=== PATIENT | female | born 1960 | race Caucasian/White ===

== ENCOUNTER 2019-09-25 05:19 | Inpatient (IN) ==
--- NOTE | 2019-09-11 11:29 | PAT Medication Instructions ---
Medication Instructions Date of Service September 11, 2019 Home Medications albuterol sulfate [Ventolin HFA] 2 puff INHALATION QID PRN ascorbic acid (vitamin C) [Vitamin C] 1 g PO DAILY cholecalciferol (vitamin D3) [Vitamin D3] 5,000 unit PO DAILY cyanocobalamin (vitamin B-12) [Vitamin B-12] 1,000 mcg PO DAILY fexofenadine-pseudoephedrine [Darline-D 12 Hour] 1 tab PO QAM levothyroxine 100 mcg PO QAM lorazepam [Ativan] 1 mg PO HS magnesium 250 mg PO HS meloxicam 15 mg PO QAM multivitamin 1 tab PO HS omega 9-moy-dnu-fish oil [Fish Oil] 1 cap PO DAILY rizatriptan 10 mg PO UD PRN ASK your surgeon for instructions meloxicam 15 mg PO QAM STOP taking 2 weeks before surgery (or as soon as possible if surgery is within 2 weeks) omega 6-qja-ycu-fish oil [Fish Oil] 1 cap PO DAILY DO NOT take the morning of surgery ascorbic acid (vitamin C) [Vitamin C] 1 g PO DAILY cholecalciferol (vitamin D3) [Vitamin D3] 5,000 unit PO DAILY cyanocobalamin (vitamin B-12) [Vitamin B-12] 1,000 mcg PO DAILY fexofenadine-pseudoephedrine [Darline-D 12 Hour] 1 tab PO QAM Take morning of surgery With a small sip of water, OTHERWISE NOTHING TO EAT OR DRINK AFTER MIDNIGHT: albuterol sulfate [Ventolin HFA] 2 puff INHALATION QID PRN (use if needed; please bring with you to hospital day of surgery if possible) levothyroxine 100 mcg PO QAM rizatriptan 10 mg PO UD PRN (if needed) Take evening before surgery albuterol sulfate [Ventolin HFA] 2 puff INHALATION QID PRN (if needed) lorazepam [Ativan] 1 mg PO HS magnesium 250 mg PO HS multivitamin 1 tab PO HS rizatriptan 10 mg PO UD PRN (if needed) Other Notes If you have any questions please call us at [phone] or [phone] or [phone] or [phone]
--- NOTE | 2019-09-11 11:51 | Anesthesiology Consultation ---
Date of Service September 11, 2019 Assessment & Plan (1) Encounter for pre-operative examination: COVID status: no hx of testing. Travel assessment: resides in [place]/no recent travel as of assessment on 09/10 PAT visit. Chart Review Chart Review: Acceptable Risk for Surgery (pending surgeon-ordered PCP clearance scheduled 09/18 (Dr. Hernandez)) and Patient seen in Pre Admission Testing Teaching & Discussion Pre-Anesthesia Teaching/Discussion Notes: Instructed NPO after midnight before surgery,except medications with 15 cc of water. Medication instructions provided according to the [facility] guidelines. History Surgery Operation Date: 09/25/19 11:35 Proposed Procedures p Left Anterior Total Hip Arthroplasty - Farhad Carmona, Height/Weight Height: 5 ft 10 in Weight: 74.5 kg Allergies Allergy/AdvReac Type Severity Reaction Status Date / Time Sulfa (Sulfonamide Allergy Intermediate Hives Verified 07/20/19 12:03 Antibiotics) broccoli Allergy Unknown Unknown Verified 07/20/19 12:03 [place] And Derivatives Allergy Unknown Unknown Verified 07/20/19 12:03 shellfish derived AdvReac Severe "Heavy Verified 09/11/19 14:39 feeling"/improved with "laying down" milk AdvReac Mild GI upset Verified 09/11/19 14:39 richards Allergy Intermediate Hives Uncoded 07/20/19 12:03 Medications Home Medications Medication Instructions Recorded Confirmed Last Taken albuterol sulfate [Ventolin HFA] 2 puff INHALATION QID PRN 07/20/19 09/07/19 Unknown ascorbic acid (vitamin C) [Vitamin 1 g PO DAILY 07/20/19 09/07/19 Unknown C] cholecalciferol (vitamin D3) 5,000 unit PO DAILY 07/20/19 09/07/19 Unknown [Vitamin D3] cyanocobalamin (vitamin B-12) 1,000 mcg PO DAILY 07/20/19 09/07/19 Unknown [Vitamin B-12] fexofenadine-pseudoephedrine 1 tab PO QAM 07/20/19 09/07/19 Unknown [Darline-D 12 Hour] levothyroxine 100 mcg PO QAM 07/20/19 09/07/19 Unknown lorazepam [Ativan] 1 mg PO HS 07/20/19 09/07/19 Unknown magnesium 250 mg PO HS 07/20/19 09/07/19 Unknown meloxicam 15 mg PO QAM 07/20/19 09/07/19 Unknown multivitamin 1 tab PO HS 07/20/19 09/07/19 Unknown omega 8-dxm-awe-fish oil [Fish Oil] 1 cap PO DAILY 07/20/19 09/07/19 Unknown rizatriptan 10 mg PO UD PRN 07/20/19 09/07/19 Unknown Past Medical History Medical History Asthma stable History of anemia no known hx of blood transfusions History of basal cell carcinoma s/p excision Hypothyroidism Migraine Osteoarthritis Scoliosis Exercise / Class Metabolic Activity II 4-5 Yardwork/Stairs/Walk up hill Past Family History Family History Other No family history of adverse response to anesthesia Past Surgical History Surgical History History of bilateral tubal ligation History of endometrial ablation History of removal of cyst off jaw History of wisdom tooth extraction Status post excision of fibroadenoma of breast right Past Anesthesia History No Hx of Anesthesia Complications and No Family Hx of Anesthesia Complications History of PONV No Hx of PONV and Hx of Motion Sickness Social History Smoking Status: Never smoker Do You Dip or Chew Tobacco: No Hx Alcohol Use: No Hx Substance Use: No substance use type: does not use Review of Systems Patient denies chest pain, shortness of breath, dyspnea on exertion, cough, wheezing, palpitations. Physical Exam PHYSICAL Full neck and c-spine range of motion. Full TMJ range of motion. TMD 3 finger breaths Mallampati Score 2 Dentition: missing molar Lungs: clear throughout to auscultation Cardiac: regular rate and rhythm, no murmurs noted Spine: normal Carotid arteries: negative bruit Extremities: no edema Testing Laboratory Results 09/11/19 12:10 09/11/19 12:10 PT 10.9 Seconds (9.0-12.0) 09/11/19 12:10 INR 1.0 (0.9-1.1) 09/11/19 12:10 APTT 33.0 Seconds (21.0-31.0) H 09/11/19 12:10 Urine Color Yellow 09/11/19 Unknown Urine Appearance Clear (Clear) 09/11/19 Unknown Urine pH 7.0 (4.5-7.5) 09/11/19 Unknown Ur Specific [place] 1.009 (1.000-1.030) 09/11/19 Unknown Urine Protein Negative (Negative) 09/11/19 Unknown Urine Glucose (UA) Negative (Negative) 09/11/19 Unknown Urine Ketones Negative (Negative) 09/11/19 Unknown Urine Nitrite Negative (Negative) 09/11/19 Unknown Ur Leukocyte Esterase Negative (Negative) 09/11/19 Unknown Blood Type A Positive 09/11/19 12:10 Antibody Screen NEGATIVE 09/11/19 12:10 Electrocardiogram Date: 09/11/19 NSR at 76bpm. unconfirmed report* Chest X-Ray Date: 09/11/19 Cardiomediastinal silhouette normal. Lungs are hyperinflated. No focal opacity. No pleural effusion or pneumothorax. Scoliotic curvature of the thoracolumbar spine. Upper abdomen normal. IMPRESSION: Hyperinflation may suggest emphysema or exuberant inspiratory effort. No current evidence of acute cardiopulmonary disease.
[2019-09-11 12:40] LABS: Basophils # (auto) 0.02 K/uL (0-0.2); Basophils % (auto) 0.4 %; Eosinophils # (auto) 0.11 K/uL (0-0.5); Eosinophils % (auto) 2.2 %; Hematocrit (blood only) 40.8 % (37-47); Hemoglobin 13.6 g/dL (12.0-16.0); Immature Granulocytes # (auto) 0.01 K/uL (0.00-0.02); Immature Granulocytes % (auto) 0.2 %; Lymphocytes # (auto) 2.02 K/uL (1.2-3.4); Lymphocytes % (auto) 41.2 %; Mean Corpuscular Hemoglobin 31.1 pg (25-34); Mean Corpuscular Hgb Conc 33.3 g/dL (32-36); Mean Corpuscular Volume 93.4 fL (80-100); Mean Platelet Volume 10.6 fL (7.4-10.4); Monocytes # (auto) 0.37 K/uL (0.11-0.59); Monocytes % (auto) 7.6 %; Neutrophils # (auto) 2.37 K/uL (1.4-6.5); Neutrophils % (auto) 48.4 %; Platelet Count 204 K/uL (130-400); RDW Coefficient of Variation 13.4 % (11.5-14.5); RDW Standard Deviation 46.3 fL (36.4-46.3); Red Blood Count 4.37 M/uL (4.2-5.4)
[2019-09-11 12:43] LABS: Appearance Urine Clear (Clear); Bilirubin Urine Negative (Negative); Blood Urine Negative (Negative); Color Urine Yellow; Glucose Urine UA Negative (Negative); Ketones Urine Negative (Negative); Leukocyte Esterase Urine Negative (Negative); Nitrite Urine Negative (Negative); Protein Urine Negative (Negative); Specific Gravity Urine 1.009 (1.000-1.030); Urobilinogen Urine Negative (Negative)
--- NOTE | 2019-09-11 12:46 | XRay Report ---
XR chest Pre-admission PA/Lat CLINICAL HISTORY: 59 years-old Female presenting with preoperative assessment. TECHNIQUE: PA and lateral views of the chest were obtained. COMPARISON: None. FINDINGS: Cardiomediastinal silhouette normal. Lungs are hyperinflated. No focal opacity. No pleural effusion o r pneumothorax. Scoliotic curvature of the thoracolumbar spine. Upper abdomen normal. IMPRESSION: 1. Hyperinflation may suggest emphysema or exuberant inspiratory effort. No current evidence of acut e cardiopulmonary disease. ACT 112: Negative or not required by law. Electronically signed by: Sharif Dobson M.D. 09/11/2019 12:45 PM
[2019-09-11 12:52] LABS: BUN Creatinine Ratio 15.2 (10-20); Calcium 8.8 mg/dl (8.5-10.1); Creatinine Clr Calc Pharmacy 99.5 ml/min; Est GFR (African American) 111.8; Est GFR (Non-African American) 96.5; Potassium 3.8 mmol/L (3.5-5.1)
[2019-09-11 12:53] LABS: Partial Thromboplastin Ratio 1.2; Prothrombin Time 10.9 Seconds (9.0-12.0)
--- NOTE | 2019-09-12 05:43 | Electrocardiogram Report ---
Test Reason : Blood Pressure : / mmHG Vent. Rate : 076 BPM Atrial Rate : 076 BPM P-R Int : 162 ms QRS Dur : 082 ms QT Int : 396 ms P-R-T Axes : 079 057 054 degrees QTc Int : 445 ms Normal sinus rhythm Normal ECG No previous ECGs available Confirmed by Blanie Mathews ([id number]) on 09/12/2019 5:43:24 AM Referred By: Farhad Carmona Confirmed By:Blaine Mathews
--- NOTE | 2019-09-23 18:00 | History & Physical Report ---
Date of Service September 25, 2019 Assessment & Plan (1) Degenerative joint disease of left hip: I have indicated the patient for left anterior total hip replacement. The risks, benefits and complications of surgery were explained to the patient which include but not limited to infection, acute blood loss, DVT/PE, injury to nerves, vessels, bone, soft tissue, arthrofibrosis, chronic pain, failure of the prosthesis, hip dislocation, leg length discrepancy, need for additional surgery, cardiac and pulmonary events and . The patient wished to proceed with surgery and informed consent was obtained at this time. We will plan for ASA BID post-operatively for DVT prophylaxis. Upon discharge the patient will be discharged home with home health services. Appropriate clearances by PCP were obtained. Remote history for MRSA, plan for vancomycin kamila-operative abx. History of Present Illness Chief Complaint: Left hip AVN/DJD Primary Care Provider: Danilo Heranndez MD The patient is a 59 year old female who presents with complaints of severe left hip pain, AVN/DJD. The patient has failed outpatient conservative treatments to this point which included NSAIDS, physical therapy and a home exercise, walking program. The patient's pain and limited function have progressed to the point where they severely hinder their activities of daily living and they no longer tolerate exercise programs. They are requesting to proceed with total hip replacement surgery. Allergies Allergy/AdvReac Type Severity Reaction Status Date / Time Sulfa (Sulfonamide Allergy Intermediate Hives Verified 09/25/19 06:10 Antibiotics) broccoli Allergy Unknown Unknown Verified 09/25/19 06:10 [place] And Derivatives Allergy Unknown Unknown Verified 09/25/19 06:10 shellfish derived AdvReac Severe "Heavy Verified 09/25/19 06:10 feeling"/improved with "laying down" milk AdvReac Mild GI upset Verified 09/25/19 06:10 richards Allergy Intermediate Hives Uncoded 09/25/19 06:10 Home Medications Home Medications Medication Instructions Recorded Confirmed Type albuterol sulfate [Ventolin HFA] 2 puff INHALATION QID PRN 07/20/19 09/25/19 History ascorbic acid (vitamin C) [Vitamin 1 g PO DAILY 07/20/19 09/25/19 History C] cholecalciferol (vitamin D3) 5,000 unit PO DAILY 07/20/19 09/25/19 History [Vitamin D3] cyanocobalamin (vitamin B-12) 1,000 mcg PO DAILY 07/20/19 09/25/19 History [Vitamin B-12] fexofenadine-pseudoephedrine 1 tab PO QAM 07/20/19 09/25/19 History [Darline-D 12 Hour] levothyroxine 100 mcg PO QAM 07/20/19 09/25/19 History lorazepam [Ativan] 1 mg PO HS 07/20/19 09/25/19 History magnesium 250 mg PO HS 07/20/19 09/25/19 History meloxicam 15 mg PO QAM 07/20/19 09/25/19 History multivitamin 1 tab PO HS 07/20/19 09/25/19 History omega 4-whe-zem-fish oil [Fish Oil] 1 cap PO DAILY 07/20/19 09/25/19 History rizatriptan 10 mg PO UD PRN 07/20/19 09/25/19 History Past Med/Surg History Medical History Asthma stable History of anemia no known hx of blood transfusions History of basal cell carcinoma s/p excision Hypothyroidism Migraine Osteoarthritis Scoliosis Surgical History History of bilateral tubal ligation History of endometrial ablation History of removal of cyst off jaw History of wisdom tooth extraction Status post excision of fibroadenoma of breast right Family History Other No family history of adverse response to anesthesia Social History Preferred Language: Yi Communication Ability: Effective Optical 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 Helper Required: No Beliefs That Will Affect Care: None Current Living Situation: Spouse Other Information That Helps Us Care for You: No Feels Safe at Home: Yes Safety Concerns: Feels Safe At This Time Smoking Status: Never smoker Do You Dip or Chew Tobacco: No ; Second Hand Exposure: Yes (father smoked) ; Tobacco Cessation Education Requested by Patient: No Hx Alcohol Use: No Hx Substance Use: No Review of Systems Review of Systems: All systems reviewed & are unremarkable except as noted in HPI & below Constitutional: as per Subjective / HPI Physical Exam Physical Exam: LLE NVSI +EHL/FHL/TA/GS SILT grossly, +2 DP pulse, compartments soft NT, limited painful ROM of the hip, antalgic gait. Constitutional: WD/WN, vitals as above Eyes: PERRL, conjunctivae normal, anicteric sclerae ENMT: external ear and nose normal, oropharynx normal Neck: trachea midline, no thyromegaly Respiratory: normal respiratory effort, lungs clear to auscultation Cardiovascular: RRR, no murmur, no edema Gastrointestinal (Abdomen): normal bowel sounds, soft, nontender, no hepatosplenomegaly Musculoskeletal: no cyanosis or clubbing, extremities motor strength 5/5 Skin: no rashes, warm and dry Neurologic: patellar DTR's 2+ bilat, sensation intact Psychiatric: A+Ox3, euthymic affect Lymphatic: no cervical or axillary lymphadenopathy Results & Data Results & Data ([facility]) Diagnostic Findings Multiple views of the hip demonstrates severe DJD with AVN involving the femoral head with complete loss of the joint space. +osteophytes, +sclerosis, +subchondral cysts.
[2019-09-25] MEDS ORDERED: BUPIVACAINE 0.5 % 5 MG/1 ML PF 10ML VIAL ONE (05:58)
[2019-09-25] MEDS ORDERED: CeleBREX 200 MG CAP PO SCH (06:00)
[2019-09-25] MEDS ORDERED: FAMOTIDINE 20 MG TAB PO SCH (06:00)
[2019-09-25] MEDS ORDERED: TRANEXAMIC ACID 1,000 MG **IV Pre-op IV SCH (06:00)
[2019-09-25] MEDS ORDERED: dexAMETHasone 4 MG TAB PO SCH (06:00)
[2019-09-25] MEDS ORDERED: TRANEXAMIC ACID 1,000 MG **IV Intra-op IV SCH (06:00)
[2019-09-25] MEDS ORDERED: GABAPENTIN 300 MG CAP PO SCH (06:00)
[2019-09-25] MEDS ORDERED: ROPIVACAINE 0.5% HCL/PF 150 MG, BUPIVACAINE 0.5% MPF 30 ML, EPINEPHrine 30MG/30ML (OR U... INFIL SCH (06:00)
[2019-09-25] MEDS ORDERED: METOCLOPRAMIDE HCL 10 MG TABLET PO SCH (06:00)
[2019-09-25] MEDS ORDERED: ACETAMINOPHEN 500 MG TAB PO SCH ×2 (06:00→14:00)
[2019-09-25] MEDS ORDERED: LR 500ML BOLUS, THEN 15ML/HR IV SCH (06:00)
[2019-09-25] MEDS ORDERED: VANCOMYCIN HCL 1,000 MG/270 ML BAG IV SCH (06:00)
[2019-09-25] MEDS ORDERED: MIDAZOLAM HCL 1 MG/ML 2ML VIAL ONE ×2 (06:38→06:39)
[2019-09-25] MEDS ORDERED: fentaNYL citrate 100 MCG/2 ML VIAL ONE (06:39)
--- NOTE | 2019-09-25 06:47 | History & Physical Bridge Note ---
Date of Service September 25, 2019 History & Physical Bridge Note I have examined the patient, reviewed the History & Physical and in the interval since the performance of the History & Physical I have noted the following changes of clinical significance: no changes noted
[2019-09-25] MEDS ORDERED: ORTHO JOINT ANESTHETIC ONE (06:54)
[2019-09-25] MEDS ORDERED: BACITRACIN INJ 50,000 UNIT VIAL ONE (06:54)
[2019-09-25] MEDS ORDERED: ePHEDrine sulfate 50 MG/ML SYR ONE (07:50)
[2019-09-25] MEDS ORDERED: PROPOFOL IV EMULSION 10 MG/ML 20 ML VIAL IV ONE ×2 (07:50→10:28)
[2019-09-25] MEDS ORDERED: LIDOCAINE HCL 2% 2 ML VIAL/AMP(20MG/ML) INFIL ONE (07:50)
[2019-09-25] MEDS ORDERED: PHENYLEPHRINE HCL 10 MG/ML VIAL ONE (08:55)
--- NOTE | 2019-09-25 08:58 | Post Operative Brief Note ---
Immediate Post Op Note v1 Date of Surgery September 25, 2019 Pre & Post Diagnosis Operation Date: 09/25/19 07:00 Pre-Op Diagnosis: Degenerative joint disease, AVN of left hip Post-Op Diagnosis: Degenerative joint disease, AVN of left hip I identified the patient and participated in the time-out.: Yes Procedure Operation Date: 09/25/19 07:00 Actual Procedures p Left Anterior Total Hip Arthroplasty(Left) - Farhad Carmona DO Surgeon Farhad Carmona DO Seam Stay Stitcher Clif Payan Estimated Blood Loss 75 Findings Consistent with Post-Op Diagnosis Fluids 1200 cc LR Specimens femoral head Anesthesia Type Spinal MAC Complications none Disposition Disposition: Recovery Room Overlapping Procedure I was present for: the critical portions of procedure. I was immediately available: during the entire case. Back up surgeon: was not required during procedure.
--- NOTE | 2019-09-25 09:00 | Operative Report ---
Post Operative Report Pre & Post Diagnosis Operation Date: 09/25/19 07:00 Pre-Op Diagnosis: Degenerative joint disease, AVN of left hip Post-Op Diagnosis: Degenerative joint disease, AVN of left hip I identified the patient and participated in the time-out.: Yes Procedure Operation Date: 09/25/19 07:00 Actual Procedures p Left Anterior Total Hip Arthroplasty(Left) - Farhad Carmona DO Surgeon Farhad Carmona DO Adjunct Lecturer Clif Payan Estimated Blood Loss 75 Findings Consistent with Post-Op Diagnosis Fluids 1200 cc LR Specimens femoral head Anesthesia Type Spinal MAC Complications none Disposition Disposition: Recovery Room Indications The patient is a 59-year-old female who presents with severe progressive left hip AVN/DJD who has failed outpatient conservative treatments. I indicated the patient for a anterior total hip replacement and the risks and benefits were explained in detail which include but not limited to infection, bleeding, blood clot, damage to surrounding bone, nerves, vessels, soft tissue, hip dislocation, failure of the prosthesis, leg length discrepancy, need for additional surgery and . The patient agreed to proceed with replacement of the hip and informed consent was obtained. Appropriate clearances were obtained. Description of Procedure COMPONENTS USED: [employer] hip system: Acetabulum size 50, femur size 7 standard offset, femoral head 32-3, liner 3250, acetabular screw 25 mm x 1. DESCRIPTION OF PROCEDURE: Following satisfactory spinal anesthesia, the patient was placed supine on the OR table. The right leg was placed in the well leg chaudhari and the left leg in the traction device. The left leg was prepared with ChloraPrep and draped sterilely. A surgical timeout was performed, patient identified and site cady verified. Appropriate antibiotics were given. A standard anterior approach in the interval between the sartorius and tensor mus cles was performed. Dissection was carried down through subcutaneous tissues. Electrocautery was utilized for hemostasis. Circumflex femoral vessels were identified, tied and ligated. The anterior capsular fat pad was removed and the capsulotomy was performed revealing the arthritic femoral neck and head. A femoral neck cut was made with reciprocating saw and the bone fragments removed. The acetabular self-retraining retractor was placed. Acetabular reaming was completed under fluoroscopic guidance, a 50 shell was impacted into an anatomic position and secured with a dome screw. Local anesthetic was placed and following irrigation, the polyethylene liner was placed. The femur was placed into position of external rotation, extension and adduction. Femoral canal was prepared up to the size 7 standard offset. Trial reduction with a -3.5 neck length head showed good soft tissue tension, leg lengths restored, and good fit and fill of the proximal canal using fluoroscopic landmarks. The hip was dislocated. The trial component was removed. The final implant was placed. The hip was irrigated with sterile saline solution and reduced. A Betadine soak was performed. After 3 minutes, the hip was once more irrigated with copious sterile saline solution with bacitracin. Stephanie-incisional soft tissue was injected utilizing [place] [employer] which includes a combination of Ropivicaine 0.5% 150mg, Bupivicaine 0.5%/Epinephrine 1:200,000 30ml, Toradol 30mg, Dexamethasone 4mg, Ketamine 10mg, Clonidine 100mcg and NSS 30ml solution. The capsule was then closed with 1-0 Vicryl interrupted figure of eight sutures. The fascia was closed with a running suture of #1 Vicryl, the subcutaneous tissues with 2-0 Vicryl and the skin with a running subcuticular stitch of 3-0 V-Loc. Dermabond prineo and a dry dressing were applied. The patient tolerated the procedure well and was transported to PACU in stable condition. Due to the complex nature of the procedure, the entire surgery was performed with the operational assistance of Clif payan PA-C. The corporate administrative assistant, under direct supervision, was involved in the actual performance of all aspects of the surgical procedure including patient positioning, hemostasis, tissue retraction, instrument management and wound closure. I attest to the content of the Intraoperative Record and any orders documented therein. Any exceptions are noted below.
--- NOTE | 2019-09-25 09:03 | Fluoroscopy Report ---
FL hip LT 1V CLINICAL HISTORY: LEFT ANTERIOR HIP COMPARISON STUDY: None FLUOROSCOPY TIME: 49 seconds NUMBER OF FLUOROSCOPIC IMAGES: 2 FINDINGS: Fluoroscopic assistance for a total left hip arthroplasty IMPRESSION: Fluoroscopic assistance for a total left hip arthroplasty. ACT 112: Negative or not required by law. The above report was generated using voice recognition software. It may contain grammatical, syntax or spelling errors. Electronically signed by: Darío Calderón M.D. 09/25/2019 9:01 AM
[2019-09-25] MEDS ORDERED: RIZATRIPTAN BENZOATE 10 MG TAB PO PRN (09:13)
[2019-09-25] MEDS ORDERED: ATROPINE SULFATE 0.1 MG/ML 10ML SYR IV PRN (09:50)
[2019-09-25] MEDS ORDERED: ONDANSETRON INJ 2 MG/ML 2 ML VIAL IV PRN ×2 (09:50→10:42)
[2019-09-25] MEDS ORDERED: ePHEDrine sulfate 50 MG/ML AMP IV PRN (09:50)
[2019-09-25] MEDS ORDERED: fentaNYL citrate 100 MCG/2 ML VIAL IV PRN (09:50)
--- NOTE | 2019-09-25 09:51 | Anesthesiology Progress Note ---
Date of Service September 25, 2019 Anesthesia Post Procedure Vital Signs Vital Signs: Temp Pulse Pulse Resp BP Pulse Ox 09/25/19 09:50 97.5 F L 85 16 117/76 99 09/25/19 09:40 97.5 F L 79 16 117/80 99 09/25/19 09:30 88 16 109/70 99 09/25/19 09:23 97.3 F L 82 16 102/70 95 09/25/19 06:17 97.9 F 86 16 142/94 H 99 Pain Intensity Bilateral Hip: Pain Intensity: 3 Transfer of Care Handoff Completed per policy Notes Mental Status: alert / awake / arousable and participated in evaluation Patient Amnestic to Procedure: Yes Nausea / Vomiting: adequately controlled Pain: adequately controlled Airway Patency, RR, SpO2: stable & adequate BP & HR: stable & adequate Hydration State: stable & adequate Neuraxial Anesthesia: was administered and sensory block is resolving Anesthetic Complications: no major complications apparent and Pt Satisfied with anesthetic care
--- NOTE | 2019-09-25 09:53 | XRay Report ---
XR hip 1V LT w pelvis HISTORY: 59 years-old Female IN PACU - A/P PELVIS and LATERAL HIP left hip total joint arthroplasty COMPARISON: Fluoroscopic images of the left hip 09/25/2019 TECHNIQUE: AP view of the pelvis with crosstable lateral view of the left hip FINDINGS: Left hip total joint arthroplasty demonstrates satisfactory alignment without acute fracture. Expecte d postsurgical soft tissue swelling and deep tissue air.. Severe right hip osteoarthritis. IMPRESSION: Left hip total joint arthroplasty with expected postoperative findings. ACT 112: Negative or not required by law. The above report was generated using voice recognition software. It may contain grammatical, syntax o r spelling errors. Electronically signed by: Ezequiel Dominique M.D. 09/25/2019 9:51 AM
[2019-09-25] MEDS ORDERED: MAGNESIUM HYDROXIDE SUSP 30 ML UDC PO PRN (10:42)
[2019-09-25] MEDS ORDERED: METOCLOPRAMIDE HCL INJ 5 MG/ML 2 ML VIAL IV PRN (10:42)
[2019-09-25] MEDS ORDERED: SODIUM CHLORIDE 0.9% 1000ML 1,000 ML IV SCH (10:42)
[2019-09-25] MEDS ORDERED: NALOXONE HCL 0.4 MG/1 ML VIAL/CARP IV PRN (10:42)
[2019-09-25] MEDS ORDERED: bisacodyL 10 MG SUPP PR PRN (10:42)
[2019-09-25] MEDS ORDERED: VANCOMYCIN CONSULT ACTIVE PRN (10:42)
[2019-09-25] MEDS ORDERED: LORazepam 1 MG TAB PO PRN (10:58)
[2019-09-25] MEDS ORDERED: MELATONIN 3 MG TAB PO PRN (10:58)
[2019-09-25] MEDS ORDERED: ALBUTEROL HFA 8 GM INHALER INH PRN (11:00)
[2019-09-25] MEDS ORDERED: VANCOMYCIN HCL 1,000 MG in SODIUM CHLORIDE 0.9% 250 ML IV SCH (12:00)
[2019-09-25] MEDS: KETOROLAC TROMETHAMINE 15 MG/ML VIAL IV SCH ×3 (12:31→23:24)
[2019-09-25] MEDS: OXYCODONE HCL IR 5 MG TAB (IMMEDIATE RELEASE) PO PRN (19:40)
[2019-09-25] MEDS: SENNA 8.6 MG TAB PO SCH (19:45)
[2019-09-25] MEDS: DOCUSATE SODIUM 100 MG CAP PO SCH (19:45)
--- NOTE | 2019-09-25 19:58 | Orthopedic Progress Note ---
Date of Service September 25, 2019 Assessment & Plan (1) Degenerative joint disease of left hip: s/p Left anterior SYDNEY -Vanco x24 -DVT ppx: SCDs, TEDS, ASA BID -WBAT LLE -PT/OT -PO XR demonstrates well aligned well fixed total hip prothesis without fracture/dislocation -am labs -DC planning Admission and Anticipated Discharge Date Admission Date: September 25, 2019 Subjective Post Operative Progress Note Patient seen sitting up in bed, comfortable, denies complaints, pain well controlled, no acute issues. Review of Systems Review of Systems: All systems reviewed & are unremarkable except as noted in HPI & below Constitutional: as per Subjective / HPI Physical Exam Physical Exam: LLE NVSI +EHL/FHL/TA/GS SILT grossly, +2 DP pulse, compartments soft NT, dressing cdi. Constitutional: WD/WN, vitals as above Results & Data ([facility]) Vital Signs (Past 12 Hours) Vital Signs Temp Pulse Pulse Resp BP Pulse Ox 09/25/19 16:25 37.0 C 86 18 125/81 97 09/25/19 13:49 36.5 C 92 H 18 135/89 98 09/25/19 12:08 80 16 126/82 98 09/25/19 11:13 36.4 C L 83 16 120/84 98 09/25/19 10:42 36.3 C L 72 16 119/83 100 09/25/19 10:05 36.4 C L 80 16 117/78 99 09/25/19 09:50 36.4 C L 85 16 117/76 99 09/25/19 09:40 36.4 C L 79 16 117/80 99 09/25/19 09:30 88 16 109/70 99 09/25/19 09:23 36.3 C L 82 16 102/70 95
[2019-09-26] MEDS: OXYCODONE HCL IR 5 MG TAB (IMMEDIATE RELEASE) PO PRN (04:02)
[2019-09-26] MEDS: LEVOTHYROXINE SODIUM 100 MCG TABLET PO SCH (05:54)
[2019-09-26] MEDS: KETOROLAC TROMETHAMINE 15 MG/ML VIAL IV SCH (05:54)
[2019-09-26 06:09] LABS: Hematocrit (blood only) 29.8 % (37-47); Immature Granulocytes # (auto) 0.02 K/uL (0.00-0.02); Immature Granulocytes % (auto) 0.2 %; Lymphocytes # (auto) 1.37 K/uL (1.2-3.4); Mean Corpuscular Hemoglobin 31.1 pg (25-34); Mean Corpuscular Hgb Conc 33.6 g/dL (32-36); Mean Corpuscular Volume 92.5 fL (80-100); Mean Platelet Volume 10.3 fL (7.4-10.4); Monocytes # (auto) 0.82 K/uL (0.11-0.59); Monocytes % (auto) 7.2 %; Neutrophils # (auto) 9.17 K/uL (1.4-6.5); Neutrophils % (auto) 80.6 %; Platelet Count 194 K/uL (130-400); RDW Coefficient of Variation 13.3 % (11.5-14.5); Red Blood Count 3.22 M/uL (4.2-5.4); White Blood Count 11.38 K/uL (4.8-10.8)
[2019-09-26 06:44] LABS: BUN Creatinine Ratio 19.9 (10-20); Calcium 8.3 mg/dl (8.5-10.1); Est GFR (African American) 111.3; Potassium 3.8 mmol/L (3.5-5.1)
--- NOTE | 2019-09-26 07:54 | Orthopedic Progress Note ---
Date of Service September 26, 2019 Assessment & Plan (1) Degenerative joint disease of left hip: s/p Left anterior SYDNEY POD#1 -Vanco x24 -DVT ppx: SCDs, TEDS, ASA BID -WBAT LLE -PT/OT -PO XR demonstrates well aligned well fixed total hip prothesis without fracture/dislocation -am labs - hgb 10.0 -DC planning- home with HH Admission and Anticipated Discharge Date Admission Date: September 25, 2019 Subjective Post Operative Progress Note Patient seen sitting up in bed, comfortable, denies complaints, pain well controlled, no acute issues. Denies F/C/N/V/SOB/CP. Review of Systems Review of Systems: All systems reviewed & are unremarkable except as noted in HPI & below Constitutional: as per Subjective / HPI Physical Exam Physical Exam: LLE NVSI +EHL/FHL/TA/GS SILT grossly, +2 DP pulse, compartments soft NT, dressing CDI Constitutional: WD/WN, vitals as above Eyes: PERRL, conjunctivae normal, anicteric sclerae ENMT: external ear and nose normal, oropharynx normal Neck: trachea midline, no thyromegaly Respiratory: normal respiratory effort, lungs clear to auscultation Cardiovascular: RRR, no murmur, no edema Gastrointestinal (Abdomen): normal bowel sounds, soft, nontender, no hepatosplenomegaly Musculoskeletal: no cyanosis or clubbing, extremities motor strength 5/5 Skin: no rashes, warm and dry Neurologic: patellar DTR's 2+ bilat, sensation intact Psychiatric: A+Ox3, euthymic affect Lymphatic: no cervical or axillary lymphadenopathy Results & Data ([facility]) Vital Signs (Past 12 Hours) Vital Signs Temp Pulse Pulse Resp BP Pulse Ox 09/26/19 03:52 36.9 C 95 H 16 130/82 98 09/26/19 01:33 93 H 18 100/65 96 09/25/19 23:15 36.9 C 89 16 149/86 H 99 09/25/19 21:29 36.8 C 83 18 125/81 98 Laboratory Results 09/26/19 09/26/19 09/26/19 Range/Units 05:41 05:41 05:41 WBC 11.38 H (4.8-10.8) K/uL RBC 3.22 L (4.2-5.4) M/uL Hgb 10.0 L (12.0-16.0) g/dL Hct 29.8 L (37-47) % MCV 92.5 (80-100) fL MCH 31.1 (25-34) pg MCHC 33.6 (32-36) g/dL RDW Std Deviation 45.0 (36.4-46.3) fL RDW Coeff of Barb 13.3 (11.5-14.5) % Plt Count 194 (130-400) K/uL MPV 10.3 (7.4-10.4) fL Immature Gran % (Auto) 0.2 % Neut % (Auto) 80.6 % Lymph % (Auto) 12.0 % [place] % (Auto) 7.2 % Eos % (Auto) 0.0 % Baso % (Auto) 0.0 % Immature Gran # (Auto) 0.02 (0.00-0.02) K/uL Neut # (Auto) 9.17 H (1.4-6.5) K/uL Lymph # (Auto) 1.37 (1.2-3.4) K/uL [place] # (Auto) 0.82 H (0.11-0.59) K/uL Eos # (Auto) 0.00 (0-0.5) K/uL Baso # (Auto) 0.00 (0-0.2) K/uL Sodium 138 (136-145) mmol/L Potassium 3.8 (3.5-5.1) mmol/L Chloride 106 (98-107) mmol/L Carbon Dioxide 28 (21-32) mmol/L Anion Gap 5.0 (3-11) BUN 13 (7-18) mg/dl Creatinine 0.66 (0.6-1.2) mg/dl Est Cr Clr Drug Dosing 98.0 ml/min Est GFR ( Amer) 111.3 Est GFR (Non-Af Amer) 96.0 BUN/Creatinine Ratio 19.9 (10-20) Glucose 110 H (70-99) mg/dl Calcium 8.3 L (8.5-10.1) mg/dl Hepatitis C Ab Screen Pending
[2019-09-26] MEDS: MULTIVITAMIN TAB PO SCH (08:29)
[2019-09-26] MEDS: DOCUSATE SODIUM 100 MG CAP PO SCH ×2 (08:29→20:29)
[2019-09-26] MEDS: ASPIRIN 325 MG ECTAB PO SCH ×2 (08:29→20:29)
[2019-09-26] MEDS: SENNA 8.6 MG TAB PO SCH (20:29)
[2019-09-27] MEDS: LEVOTHYROXINE SODIUM 100 MCG TABLET PO SCH (06:35)
[2019-09-27 06:45] LABS: Basophils # (auto) 0.01 K/uL (0-0.2); Basophils % (auto) 0.1 %; Eosinophils # (auto) 0.03 K/uL (0-0.5); Eosinophils % (auto) 0.3 %; Hematocrit (blood only) 30.3 % (37-47); Hemoglobin 10.1 g/dL (12.0-16.0); Immature Granulocytes # (auto) 0.02 K/uL (0.00-0.02); Immature Granulocytes % (auto) 0.2 %; Lymphocytes # (auto) 1.43 K/uL (1.2-3.4); Lymphocytes % (auto) 15.9 %; Mean Corpuscular Hemoglobin 31.2 pg (25-34); Mean Corpuscular Hgb Conc 33.3 g/dL (32-36); Mean Corpuscular Volume 93.5 fL (80-100); Mean Platelet Volume 10.6 fL (7.4-10.4); Monocytes # (auto) 0.73 K/uL (0.11-0.59); Monocytes % (auto) 8.1 %; Neutrophils # (auto) 6.78 K/uL (1.4-6.5); Neutrophils % (auto) 75.4 %; Platelet Count 182 K/uL (130-400); RDW Coefficient of Variation 13.7 % (11.5-14.5); RDW Standard Deviation 46.9 fL (36.4-46.3); Red Blood Count 3.24 M/uL (4.2-5.4)
[2019-09-27 07:20] LABS: BUN Creatinine Ratio 15.5 (10-20); Calcium 8.2 mg/dl (8.5-10.1); Creatinine Clr Calc Pharmacy 129.4 ml/min; Est GFR (African American) 121.9; Est GFR (Non-African American) 105.2; Potassium 3.7 mmol/L (3.5-5.1)
[2019-09-27] MEDS: MULTIVITAMIN TAB PO SCH (08:38)
[2019-09-27] MEDS: ASPIRIN 325 MG ECTAB PO SCH (08:38)
[2019-09-27] MEDS: DOCUSATE SODIUM 100 MG CAP PO SCH (08:38)
--- NOTE | 2019-09-27 08:56 | Orthopedic Progress Note ---
Date of Service September 27, 2019 Assessment & Plan (1) Degenerative joint disease of left hip: s/p Left anterior SYDNEY POD#2 -DVT ppx: SCDs, TEDS, ASA BID -WBAT LLE -PT/OT -am labs - hgb 10.1 -DC planning- home with Admission and Anticipated Discharge Date Admission Date: September 25, 2019 Subjective Postop day 2 status post left anterior SYDNEY Patient currently lying in bed. States that she began having a migraine headache this morning. Nursing is in the process of getting her medication. No other complaints at this time. Hoping to go home today. Physical Exam Physical Exam: Dressing is clean, dry, and intact. Mild ecchymosis noted as well. Mild thigh swelling. Thigh is soft and nontender. Calves are soft and nontender. Neurovascular is intact. Toes are mobile. Leg lengths appear equal. Results & Data ([facility]) Vital Signs (Past 12 Hours) Vital Signs Temp Pulse Pulse Resp BP Pulse Ox 09/27/19 07:26 37.0 C 90 16 127/75 99 09/26/19 23:02 37.2 C 104 H 20 120/73 96
--- NOTE | 2019-09-27 14:07 | Orthopedic Progress Note ---
Date of Service September 27, 2019 Assessment & Plan (1) Degenerative joint disease of left hip: s/p Left anterior SYDNEY POD#2 -DVT ppx: SCDs, TEDS, ASA BID -WBAT LLE -PT/OT -am labs - hgb 10.1 -DC planning- home with POD#1 -Vanco x24 -DVT ppx: SCDs, TEDS, ASA BID -WBAT LLE -PT/OT -PO XR demonstrates well aligned well fixed total hip prothesis without fracture/dislocation -am labs - hgb 10.0 -DC planning- home with Admission and Anticipated Discharge Date Admission Date: September 25, 2019 Subjective Post Operative Progress Note Patient seen sitting up in bed, comfortable, denies complaints, pain well controlled, no acute issues. Denies F/C/N/V/SOB/CP. Review of Systems Review of Systems: All systems reviewed & are unremarkable except as noted in HPI & below Constitutional: as per Subjective / HPI Physical Exam Physical Exam: LLE NVSI +EHL/FHL/TA/GS SILT grossly, +2 DP pulse, compartments soft NT, dressing cdi. Constitutional: WD/WN, vitals as above Results & Data ([facility]) Vital Signs (Past 12 Hours) Vital Signs Temp Pulse Resp BP Pulse Ox 09/27/19 07:26 37.0 C 90 16 127/75 99 Laboratory Results 09/27/19 09/27/19 Range/Units 06:12 06:12 WBC 9.00 (4.8-10.8) K/uL RBC 3.24 L (4.2-5.4) M/uL Hgb 10.1 L (12.0-16.0) g/dL Hct 30.3 L (37-47) % MCV 93.5 (80-100) fL MCH 31.2 (25-34) pg MCHC 33.3 (32-36) g/dL RDW Std Deviation 46.9 H (36.4-46.3) fL RDW Coeff of Barb 13.7 (11.5-14.5) % Plt Count 182 (130-400) K/uL MPV 10.6 H (7.4-10.4) fL Immature Gran % (Auto) 0.2 % Neut % (Auto) 75.4 % Lymph % (Auto) 15.9 % [place] % (Auto) 8.1 % Eos % (Auto) 0.3 % Baso % (Auto) 0.1 % Immature Gran # (Auto) 0.02 (0.00-0.02) K/uL Neut # (Auto) 6.78 H (1.4-6.5) K/uL Lymph # (Auto) 1.43 (1.2-3.4) K/uL [place] # (Auto) 0.73 H (0.11-0.59) K/uL Eos # (Auto) 0.03 (0-0.5) K/uL Baso # (Auto) 0.01 (0-0.2) K/uL Sodium 142 (136-145) mmol/L Potassium 3.7 (3.5-5.1) mmol/L Chloride 110 H (98-107) mmol/L Carbon Dioxide 29 (21-32) mmol/L Anion Gap 3.0 (3-11) BUN 8 D (7-18) mg/dl Creatinine 0.50 L (0.6-1.2) mg/dl Est Cr Clr Drug Dosing 129.4 ml/min Est GFR ( Amer) 121.9 Est GFR (Non-Af Amer) 105.2 BUN/Creatinine Ratio 15.5 (10-20) Glucose 104 H (70-99) mg/dl Calcium 8.2 L (8.5-10.1) mg/dl
--- NOTE | 2019-09-27 14:08 | Discharge Summary ---
Date of Service September 27, 2019 Admission HPI Per Admitting Provider The patient is a 59 year old female who presents with complaints of severe left hip pain, AVN/DJD. The patient has failed outpatient conservative treatments to this point which included NSAIDS, physical therapy and a home exercise, walking program. The patient's pain and limited function have progressed to the point where they severely hinder their activities of daily living and they no longer tolerate exercise programs. They are requesting to proceed with total hip replacement surgery. Principal Diagnosis Left anterior total hip replacement -left hip AVN/DJD Discharge Exam LLE NVSI +EHL/FHL/TA/GS SILT grossly, +2 DP pulse, compartments soft NT, dressing cdi. Constitutional WD/WN, vitals as above Discharge Data Allergies Allergy/AdvReac Type Severity Reaction Status Date / Time Sulfa (Sulfonamide Allergy Intermediate Hives Verified 09/25/19 06:10 Antibiotics) broccoli Allergy Unknown Unknown Verified 09/25/19 06:10 [place] And Derivatives Allergy Unknown Unknown Verified 09/25/19 06:10 shellfish derived AdvReac Severe "Heavy Verified 09/25/19 06:10 feeling"/improved with "laying down" milk AdvReac Mild GI upset Verified 09/25/19 06:10 richards Allergy Intermediate Hives Uncoded 09/25/19 06:10 Consultations 09/26/19 08:00 Consult Case Management - Discharge Planning Routine Procedures Performed Operation Date: 09/25/19 07:00 Actual Procedures p Left Anterior Total Hip Arthroplasty(Left) - Farhad Carmona DO Ordered Studies 09/25/19 07:00 FL fluoroscopy <1hr Routine FL hip LT 1V Routine Hospital Course (1) Degenerative joint disease of left hip: The patient is a 59 -year-old female who presents with 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 The patient's symptoms have progressed to the point where it has been difficult to perform even normal activities of daily living. I indicated the patient for a left anterior total hip arthroplasty, the risks, benefits and complications of the procedure include but not limited to infection, bleeding, damage to bone, nerves, vessels, surrounding soft tissue, may develop blood clots, loss of function, leg length discrepancy, dislocation, failure of the components, loosening of the components, the need for additional surgery and . The patient wished to proceed with surgery at this time and informed consent was obtained. Hospital Course: On 09/25/19 the patient was taken to the operating room, adequate anesthesia administered and underwent a left anterior total hip arthroplasty. The patient tolerated the procedure well and was taken to the PACU in stable condition. Post-operatively the patient was started on a DVT ppx medication and given appropriate IV antibiotics. Consults were placed to physical therapy, occupational therapy and case management. On POD#1, the patient did well overnight and their pain was well controlled. Labs were drawn and the Hgb was 10.0. The patient progressed well with PT. Did report some feeling of light headed upon ambulating which resolved. Remained hemodynamically stable. On POD#2, the patient continued to progress well with PT. No reports of feeling light headed with activity. Labs were drawn and hgb was 10.1. Dressings were changed at this time and the incision was clean, dry and intact. The patients hospital stay was relatively uneventful and they were deemed stable by the orthopedic team and consultants to be discharged home with on 09/27/19. Discharge Instructions: Upon discharge the patient may weight bear as tolerates through their operative extremity. They were instructed to keep the incision clean and dry at all times. The patient may shower but should not submerge the incision, avoid bathing, pools and hot tubes. The patient was given a script for pain medication and should take as instructed. The patient was given a script for DVT ppx ASA 325mg BID and should take as directed. The patient was instructed to not drive or travel for long distances until cleared to do so. If the patient develops any symptoms of fevers, chills, nausea, vomiting, increased redness, swelling, pain or drainage from the surgical site, they should notify the office and/or proceed to the nearest emergency room. The patient should follow up in 10-14 days after surgery for their routine post-operative follow-up appointment and should call the office to confirm the date and time. s/p Left anterior SYDNEY POD#2 -DVT ppx: SCDs, TEDS, ASA BID -WBAT LLE -PT/OT -am labs - hgb 10.1 -DC planning- home with POD#1 -Vanco x24 -DVT ppx: SCDs, TEDS, ASA BID -WBAT LLE -PT/OT -PO XR demonstrates well aligned well fixed total hip prothesis without frac ture/dislocation -am labs - hgb 10.0 -DC planning- home with HH Total Time Total Time Spent Total Time Spent (In Minutes): 45 Discharge Plan Discharge Items Patient Disposition: Home - Home Health Services Reason For Visit: Left Hip Osteoarthritis Discharge Diagnosis: Left anterior total hip replacement -left hip avn/djd Condition on Discharge: Good Activity: Per Instructions section Lifting: Wait until after follow-up appointment Bathing: Keep incision dry Bathing Comment: No bathing, pools or hot tubs. Sexual Activity: Wait until after follow-up appointment Exercise/Sports: Wait until after follow-up appointment Driving/Machine Use: No driving Weightbearing: Full weightbearing Non-emergency contact: Surgeon Call non-emergency contact if: you have any medication questions, your symptoms worsen, your pain is not controlled, your pain is worsening, your pain is unusual for you, your pain is concerning for you, you have a fever, your temperature is above 101, your wound has increased redness, your wound has increased drainage and your wound pain has increased Follow-up/Referrals: Farhad Carmona DO [Physician] - 10/12/19 11:20 am Danilo Hernandez MD [Primary Care Provider] - Diet: Regular Addtl Attending Provider Instructions: ACTIVITY RECOMMENDATIONS: SELF CARE INSTRUCTIONS AFTER TOTAL HIP REPLACEMENT : Direct Anterior Approach Until the incision and soft tissues around your hip have healed, there is a possibility that the hip prosthesis could dislocate. A. Hip flexion ( Up & Down out of chair or steps ) may be difficult. This is normal. B. Numbness in front of the thigh is also normal for a few weeks. C. Use hand rails when walking on stairs. D. Wear low heeled shoes with non-slip soles. E. Be sure that your floors are free of things that could trip you - throw rugs, electrical cords, small objects. Avoid wet and waxed floors, especially with crutches and canes. F. Try to walk several times a day with rest periods between. G. Continue with all the exercises taught to you in the hospital. Again, make walking a part of your daily routine. SPECIAL CARE INSTRUCTIONS: VERY IMPORTANT TO READ AND REVIEW A. You may still be at risk for phlebitis and blood clots. 1. Wear surgical stockings (CHILO hose) for 2 weeks after surgery to improve circulation and reduce swelling. 2. Take Aspirin 325mg twice daily for 4 weeks or as directed by your doctor. This is your blood thinner. 3. High risk patients may be prescribed a stronger blood thinner if necessary. 4. If you are on Coumadin normally, your family doctor/home service demonstrator should monitor your blood work. Expect a phone call the day of or the day after bloodwork is drawn to adjust your dosage. B. You must take antibiotics before having dental work, bladder, bowel and other surgery. Your doctor will provide you with a permanent card to carry describing precautions. C. Call [facility] if you have a fever, redness or swelling around the incision, cloudy drainage from incision, or sudden increase in pain in your hip, not relieved by your regular pain medication. D. Please call the office at if you have any concerns or questions about your operation or recovery. * YOU MAY SHOWER, NO TUB BATHS UNTIL CLEARED BY YOUR DOCTOR. - Keep an extra close eye on the top portion of your incision. Be sure to keep clean & dry. * WEAR CHILO HOSE 20 HOURS PER DAY FOR 2 WEEKS. * YOU MAY PROGRESS FROM A WALKER, TO A CANE, TO INDEPENDENT AT YOUR OWN PACE. * MOST PATIENTS WILL HAVE HOME NURSING FOR THERAPY. IF YOU DECIDE TO DO OUTPATIENT PHYSICAL THERAPY, PLEASE SCHEDULE THIS 3 TIMES PER WEEK. * DERMABOND Prineo- This is a mesh tape dressing that is covered with glue. It should remain in place until the incision is properly healed, usually 10-14 days. This dressing is designed to naturally slough off. You may trim the excess mesh tape as it peels off. Incision may be briefly wet in a shower. Dry immediately by blotting with a clean, dry towel. Do not bath or swim until instructed by your doctor. Do not scratch, rub, or pick at the dressing. Do not apply any topical ointments or lotions until dressing is completely removed and/or instructed by your doctor. There may be a small piece of suture material at one end of your incision. Do not pull or trim this. If it is bothersome or catching on clothing, you may cover it with a band-aid. FOLLOW UP VISIT: If appointment is not already scheduled: Please call [facility] to make a follow-up appointment for 2 weeks after your surgery at . Pending Studies at Discharge: No Stand-Alone Forms: My [facility] Medications and DC Order Prescriptions: New aspirin 325 mg Tablet,Delayed Release (Dr/Ec) 325 mg PO BID Qty: 56 RF: 0 sennosides [Senokot] 8.6 mg Tablet 17.2 mg PO HS PRN (Reason: constipation) Qty: 28 RF: 0 oxycodone 5 mg Tablet 5 mg PO Q6H MDD 4 PRN (Reason: pain) Qty: 30 RF: 0 fluconazole 150 mg tablet 150 mg PO Q3D PRN (Reason: Yeast infection) Qty: 2 RF: 0 Continued multivitamin Tablet 1 tab PO HS RF: 0 ascorbic acid (vitamin C) [Vitamin C] 1,000 mg Tablet 1 g PO DAILY RF: 0 cyanocobalamin (vitamin B-12) [Vitamin B-12] 1,000 mcg Tablet 1,000 mcg PO DAILY RF: 0 levothyroxine 100 mcg Tablet 100 mcg PO QAM RF: 0 magnesium 250 mg Tablet 250 mg PO HS RF: 0 lorazepam [Ativan] 1 mg Tablet 1 mg PO HS RF: 0 fexofenadine-pseudoephedrine [Darline-D 12 Hour] 60-120 mg Tablet Extended Release 12 Hr 1 tab PO QAM RF: 0 cholecalciferol (vitamin D3) [Vitamin D3] 125 mcg (5,000 unit) Tablet 5,000 unit PO DAILY RF: 0 omega 2-iih-ypo-fish oil [Fish Oil] 1,000 mg (120 mg-180 mg) Capsule 1 cap PO DAILY RF: 0 albuterol sulfate [Ventolin HFA] 90 mcg/actuation Hfa Aerosol Inhaler 2 puff INHALATION QID PRN (Reason: Shortness Of Breath) RF: 0 rizatriptan 10 mg Tablet 10 mg PO UD PRN (Reason: Migraine Headache) RF: 0 melatonin 5 mg Tablet 5 mg PO HS PRN (Reason: Sleep) RF: 0 Discontinued meloxicam 15 mg Tablet 15 mg PO QAM RF: 0 Discharge Orders: Discharge Order (Routine); Ordered 09/27/19 Ordered By: Farhad Parekh/Other Patient Handouts: Hip Precautions, Hip Replace Total Dc Admission Data Admit Date/Time: 09/25/19 09:32 Attending Provider: Farhad Carmona Admit Provider: Farhad Carmona Primary Care Provider: Danilo Hernandez Other Providers: Maria Luisa,Home Health Other Interventions: Discharge Summary Assessment (RN) Last Done: 09/27/19 14:20 DC Date/Time DO NOT enter until pt leaves facility: 09/27/19 15:45
== END 2019-09-27 15:45 | disposition home health service (06) | DRG 470 ==
LOC: ASU 05:19 → 3E 09:32

== ENCOUNTER 2019-12-31 09:48 | Inpatient (IN) ==
--- NOTE | 2019-12-26 08:57 | PAT Medication Instructions ---
Medication Instructions Date of Service December 26, 2019 Home Medications Medication Instructions Recorded aspirin 325 mg PO BID #56 tab 09/25/19 sennosides [Senokot] 17.2 mg PO HS PRN #28 tab 09/25/19 fluconazole 150 mg PO Q3D PRN #2 tab 09/26/19 albuterol sulfate [Ventolin HFA] 2 puff INHALATION QID PRN ascorbic acid (vitamin C) [Vitamin C] 1 g PO DAILY cholecalciferol (vitamin D3) [Vitamin D3] 5,000 unit PO DAILY cyanocobalamin (vitamin B-12) [Vitamin B-12] 1,000 mcg PO DAILY fexofenadine-pseudoephedrine [Darline-D 12 Hour] 1 tab PO QAM levothyroxine 100 mcg PO QAM lorazepam [Ativan] 1 mg PO HS magnesium 250 mg PO HS multivitamin 1 tab PO HS omega 5-edo-ozv-fish oil [Fish Oil] 1 cap PO DAILY rizatriptan 10 mg PO UD PRN aspirin 325 mg PO BID melatonin 5 mg PO HS PRN sennosides [Senokot] 17.2 mg PO HS PRN fluconazole 150 mg PO Q3D PRN Continue as directed fluconazole 150 mg PO Q3D PRN (if needed) ASK your prescriber and surgeon aspirin 325 mg PO BID STOP taking 2 weeks before surgery (or as soon as possible if surgery is within 2 weeks) omega 9-ubh-rkp-fish oil [Fish Oil] 1 cap PO DAILY DO NOT take the morning of surgery ascorbic acid (vitamin C) [Vitamin C] 1 g PO DAILY cholecalciferol (vitamin D3) [Vitamin D3] 5,000 unit PO DAILY cyanocobalamin (vitamin B-12) [Vitamin B-12] 1,000 mcg PO DAILY fexofenadine-pseudoephedrine [Darline-D 12 Hour] 1 tab PO QAM Take morning of surgery With a small sip of water, OTHERWISE NOTHING TO EAT OR DRINK AFTER MIDNIGHT: albuterol sulfate [Ventolin HFA] 2 puff INHALATION QID PRN (use if needed; please bring with you to hospital day of surgery if possible) levothyroxine 100 mcg PO QAM rizatriptan 10 mg PO UD PRN (if needed) Take evening before surgery albuterol sulfate [Ventolin HFA] 2 puff INHALATION QID PRN (if needed) lorazepam [Ativan] 1 mg PO HS magnesium 250 mg PO HS multivitamin 1 tab PO HS rizatriptan 10 mg PO UD PRN (if needed) melatonin 5 mg PO HS PRN(if needed) sennosides [Senokot] 17.2 mg PO HS PRN (if needed) Other Notes If you have any questions please call us at [phone] or [phone] or [phone] or [phone]
--- NOTE | 2019-12-26 12:30 | Anesthesiology Consultation ---
Date of Service December 26, 2019 Assessment & Plan (1) Encounter for pre-operative examination: COVID Status: As of 12/25 assessment, patient denies travel to endemic area, known exposure/sick contacts, or symptoms of COVID19. Patient instructed that they and their household members must follow strict social distancing guidelines, wear a mask in public and avoid travel for 14 days prior to surgery. Preoperative COVID19 testing completed at [facility] [place] today (12/25). Patient made aware t o self-isolate as much as possible between COVID testing and surgery. S/P LEFT SYDNEY 09/25/19 -- SAB x 1 attempt without issues per record Chart Review Chart Review: Acceptable Risk for Surgery and Patient seen in Pre Admission Testing Teaching & Discussion Instructed NPO after midnight before surgery, except medications with 15 cc of water. Medication instructions provided according to the PAT guidelines. History Surgery Operation Date: 12/31/19 12:20 Proposed Procedures p Right Anterior Total Hip Arthroplasty - Farhad Carmona DO Height/Weight Height: 5 ft 10 in Weight: 74.7 kg Allergies Allergy/AdvReac Type Severity Reaction Status Date / Time Sulfa (Sulfonamide Allergy Intermediate Hives Verified 12/18/19 08:40 Antibiotics) broccoli Allergy Unknown Unknown Verified 12/18/19 08:40 Quay And Derivatives Allergy Unknown Unknown Verified 12/18/19 08:40 shellfish derived AdvReac Severe "Heavy Verified 12/18/19 08:40 feeling"/improved with "laying down" milk AdvReac Mild GI upset Verified 12/18/19 08:40 richards Allergy Intermediate Hives Uncoded 12/18/19 08:40 Medications Home Medications Medication Instructions Recorded Confirmed Last Taken albuterol sulfate [Ventolin HFA] 2 puff INHALATION QID PRN 07/20/19 12/18/19 22:00 ascorbic acid (vitamin C) [Vitamin 1 g PO DAILY 07/20/19 12/18/19 09/24/19 05:30 C] cholecalciferol (vitamin D3) 5,000 unit PO DAILY 07/20/19 12/18/19 09/24/19 13:00 [Vitamin D3] cyanocobalamin (vitamin B-12) 1,000 mcg PO DAILY 07/20/19 12/18/19 09/18/19 [Vitamin B-12] fexofenadine-pseudoephedrine 1 tab PO QAM 07/20/19 12/18/19 09/24/19 05:30 [Darline-D 12 Hour] levothyroxine 100 mcg PO QAM 07/20/19 12/18/19 09/25/19 03:30 lorazepam [Ativan] 1 mg PO HS 07/20/19 12/18/19 09/24/19 22:00 magnesium 250 mg PO HS 07/20/19 12/18/19 09/24/19 17:00 multivitamin 1 tab PO HS 07/20/19 12/18/19 09/24/19 05:30 omega 8-grs-gkk-fish oil [Fish Oil] 1 cap PO DAILY 07/20/19 12/18/19 09/11/19 rizatriptan 10 mg PO UD PRN 07/20/19 12/18/19 09/23/19 aspirin 325 mg PO BID #56 tab 09/25/19 12/18/19 Unknown melatonin 5 mg PO HS PRN 09/25/19 12/18/19 09/24/19 22:00 sennosides [Senokot] 17.2 mg PO HS PRN #28 tab 09/25/19 12/18/19 Unknown fluconazole 150 mg PO Q3D PRN #2 tab 09/26/19 12/18/19 Unknown Past Medical History Medical History Asthma stable, using albuterol almost every day currently due to seasonal allergies. History of anemia no known hx of blood transfusions History of basal cell carcinoma s/p excision Hypothyroidism Migraine Osteoarthritis Scoliosis Exercise / Class Metabolic Activity III < 4 Walking/Shop/Light housework (Denies CP or SOB with ambulation, using cane, limited currently due to hip pain and s/p SYDNEY 08/2019) Past Family History Family History Other No family history of adverse response to anesthesia Past Surgical History Surgical History History of bilateral tubal ligation History of endometrial ablation History of left hip replacement 09/25/2019 [facility] History of removal of cyst off jaw History of wisdom tooth extraction Status post excision of fibroadenoma of breast right Past Anesthesia History No Hx of Anesthesia Complications and No Family Hx of Anesthesia Complications PATIENT DOES HAVE SCOLIOSIS, BUT NO ISSUES NOTED WITH SPINAL BLOCK ON 08/2019 SYDNEY RECORD. History of PONV History of PONV (Nausea only, possibly 2/2 oxycodone) and Hx of Motion Sickness Social History Smoking Status: Never smoker Do You Dip or Chew Tobacco: No Hx Alcohol Use: No Hx Substance Use: No substance use type: does not use Review of Systems Pt denies any recent chest pain, shortness of breath, palpitations, fever, URI, or uncontrolled acid reflux. +minor cough 2/2 seasonal allergies Physical Exam Vital Signs BP: 126/89 P: 71bpm SPO2: 99% RA T: 97.4 F R: 16 ENMT Mouth: + chipped teeth (last molar on bottom on both sides broken); no dental restorations and no loose teeth Thyromental Distance: > or= 3.5 Finger Breadths Mallampati Class: I Neck normal visual inspection; neck extension not limited Respiratory normal respiratory effort Auscultation: lungs clear to auscultation bilaterally Cardiovascular Rate/Rhythm: regular rate and regular rhythm Heart Sounds: no murmur Extremities: no edema Testing Laboratory Results 12/26/19 12:43 12/26/19 12:43 PT 10.9 Seconds (9.0-12.0) 12/26/19 12:43 INR 1.0 (0.9-1.1) 12/26/19 12:43 APTT 32.5 Seconds (21.0-31.0) H 12/26/19 12:43 Hemoglobin A1c 5.4 % (4.5-5.6) 12/26/19 12:43 Urine Color Yellow 12/26/19 12:43 Urine Appearance Clear (Clear) 12/26/19 12:43 Urine pH 6.5 (4.5-7.5) 12/26/19 12:43 Ur Specific [place] 1.013 (1.000-1.030) 12/26/19 12:43 Urine Protein Negative (Negative) 12/26/19 12:43 Urine Glucose (UA) Negative (Negative) 12/26/19 12:43 Urine Ketones Negative (Negative) 12/26/19 12:43 Urine Nitrite Negative (Negative) 12/26/19 12:43 Ur Leukocyte Esterase Negative (Negative) 12/26/19 12:43 Blood Type A Positive 12/26/19 12:43 Antibody Screen NEGATIVE 12/26/19 12:43 Electrocardiogram Date: 09/11/19 Findings: + NSR @ (76bpm) Chest X-Ray Date: 09/11/19 Hyperinflation may suggest emphysema or exuberant inspiratory effort. No current evidence of acute cardiopulmonary disease.
[2019-12-26 13:32] LABS: Basophils # (auto) 0.02 K/uL (0-0.2); Basophils % (auto) 0.4 %; Eosinophils # (auto) 0.06 K/uL (0-0.5); Eosinophils % (auto) 1.1 %; Hemoglobin 13.7 g/dL (12.0-16.0); Lymphocytes # (auto) 1.75 K/uL (1.2-3.4); Lymphocytes % (auto) 32.8 %; Mean Corpuscular Hemoglobin 29.8 pg (25-34); Mean Corpuscular Hgb Conc 31.9 g/dL (32-36); Mean Corpuscular Volume 93.5 fL (80-100); Mean Platelet Volume 11.1 fL (7.4-10.4); Monocytes # (auto) 0.26 K/uL (0.11-0.59); Monocytes % (auto) 4.9 %; Neutrophils # (auto) 3.24 K/uL (1.4-6.5); Neutrophils % (auto) 60.8 %; Platelet Count 230 K/uL (130-400); RDW Coefficient of Variation 13.8 % (11.5-14.5); White Blood Count 5.33 K/uL (4.8-10.8)
[2019-12-26 13:33] LABS: Estimated Average Glucose 108 mg/dl; Hemoglobin A1C 5.4 % (4.5-5.6)
[2019-12-26 13:39] LABS: Appearance Urine Clear (Clear); Bilirubin Urine Negative (Negative); Blood Urine Negative (Negative); Color Urine Yellow; Glucose Urine UA Negative (Negative); Ketones Urine Negative (Negative); Leukocyte Esterase Urine Negative (Negative); Nitrite Urine Negative (Negative); Protein Urine Negative (Negative); Specific Gravity Urine 1.013 (1.000-1.030); Urobilinogen Urine Negative (Negative); pH Urine 6.5 (4.5-7.5)
[2019-12-26 13:44] LABS: Partial Thromboplastin Ratio 1.2; Partial Thromboplastin Time 32.5 Seconds (21.0-31.0); Prothrombin Time 10.9 Seconds (9.0-12.0)
[2019-12-26 14:52] LABS: Albumin Level 3.9 gm/dl (3.4-5.0); BUN Creatinine Ratio 13.5 (10-20); Calcium 9.5 mg/dl (8.5-10.1); Creatinine Clr Calc Pharmacy 96.6 ml/min; Est GFR (African American) 110.7; Est GFR (Non-African American) 95.5; Potassium 3.7 mmol/L (3.5-5.1)
--- NOTE | 2019-12-30 10:22 | History & Physical Report ---
Date of Service December 31, 2019 Assessment & Plan (1) Degenerative joint disease of right hip: I have indicated the patient for right anterior total hip replacement. The risks, benefits and complications of surgery were explained to the patient which include but not limited to infection, acute blood loss, DVT/PE, injury to nerves, vessels, bone, soft tissue, arthrofibrosis, chronic pain, failure of the prosthesis, hip dislocation, leg length discrepancy, need for additional surgery, cardiac and pulmonary events and . The patient wished to proceed with surgery and informed consent was obtained at this time. We will plan for ASA BID post-operatively for DVT prophylaxis. Upon discharge the patient will be discharged home with home health services. Appropriate clearances by PCP were obtained. History of Present Illness Chief Complaint: Right hip pain/DJD/AVN Primary Care Provider: Danilo Hernandez MD The patient is a 59 year old female who presents with complaints of severe right hip pain and DJD/AVN. The patient has failed outpatient conservative treatments to this point which included NSAIDs, PT and home exercise/walking program. The patient's pain and limited function have progressed to the point where they severely hinder their activities of daily living and they no longer tolerate exercise programs. They are requesting to proceed with total hip replacement surgery. Allergies Allergy/AdvReac Type Severity Reaction Status Date / Time Sulfa (Sulfonamide Allergy Intermediate Hives Verified 12/31/19 10:26 Antibiotics) broccoli Allergy Unknown Unknown Verified 12/31/19 10:26 [place]et And Derivatives Allergy Unknown Unknown Verified 12/31/19 10:26 shellfish derived AdvReac Severe "Heavy Verified 12/31/19 10:26 feeling"/improved with "laying down" milk AdvReac Mild GI upset Verified 12/31/19 10:26 richards Allergy Intermediate Hives Uncoded 12/31/19 10:26 Home Medications Home Medications Medication Instructions Recorded Confirmed Type albuterol sulfate [Ventolin HFA] 2 puff INHALATION QID PRN 07/20/19 12/31/19 History ascorbic acid (vitamin C) [Vitamin 1 g PO DAILY 07/20/19 12/31/19 History C] cholecalciferol (vitamin D3) 5,000 unit PO DAILY 07/20/19 12/31/19 History [Vitamin D3] cyanocobalamin (vitamin B-12) 1,000 mcg PO DAILY 07/20/19 12/31/19 History [Vitamin B-12] fexofenadine-pseudoephedrine 1 tab PO QAM 07/20/19 12/31/19 History [Darline-D 12 Hour] levothyroxine 100 mcg PO QAM 07/20/19 12/31/19 History lorazepam [Ativan] 1 mg PO HS 07/20/19 12/31/19 History magnesium 250 mg PO HS 07/20/19 12/31/19 History multivitamin 1 tab PO HS 07/20/19 12/31/19 History omega 7-fss-rem-fish oil [Fish Oil] 1 cap PO DAILY 07/20/19 12/31/19 History rizatriptan 10 mg PO UD PRN 07/20/19 12/31/19 History aspirin 325 mg PO BID #56 tab 09/25/19 12/31/19 Rx melatonin 5 mg PO HS PRN 09/25/19 12/31/19 History sennosides [Senokot] 17.2 mg PO HS PRN #28 tab 09/25/19 12/31/19 Rx fluconazole 150 mg PO Q3D PRN #2 tab 09/26/19 12/18/19 Rx acetaminophen [Tylenol Extra 1,000 mg PO Q6 PRN 12/31/19 12/31/19 History Strength] Past Med/Surg History Medical History Asthma stable, using albuterol almost every day currently due to seasonal allergies. History of anemia no known hx of blood transfusions History of basal cell carcinoma s/p excision Hypothyroidism Migraine Osteoarthritis Scoliosis Surgical History History of bilateral tubal ligation History of endometrial ablation History of left hip replacement 09/25/2019 [facility] History of removal of cyst off jaw History of wisdom tooth extraction Status post excision of fibroadenoma of breast right Family History Other No family history of adverse response to anesthesia Social History Smoking Status: Never smoker Second Hand Exposure: Yes (father smoked); Do You Dip or Chew Tobacco: No; Hx Alcohol Use: No Hx Substance Use: No Preferred Language: Czech Communication Ability: Effective Tunnel Mucker Required: No Beliefs That Will Affect Care: None marital status: Current Living Situation: Spouse Feels Safe at Home: Yes Safety Concerns: Feels Safe At This Time Review of Systems Review of Systems: All systems reviewed & are unremarkable except as noted in HPI & below Constitutional: as per Subjective / HPI Physical Exam Physical Exam: RLE NVSI +EHL/FHL/TA/GS SILT grossly, +2 DP pulse, compartments soft NT, limited painful ROM of the hip, antalgic gait. Constitutional: WD/WN, vitals as above Eyes: PERRL, conjunctivae normal, anicteric sclerae ENMT: external ear and nose normal, oropharynx normal Neck: trachea midline, no thyromegaly Respiratory: normal respiratory effort, lungs clear to auscultation Cardiovascular: RRR, no murmur, no edema Gastrointestinal (Abdomen): normal bowel sounds, soft, nontender, no hepatosplenomegaly Musculoskeletal: no cyanosis or clubbing, extremities motor strength 5/5 Skin: no rashes, warm and dry Neurologic: patellar DTR's 2+ bilat, sensation intact Psychiatric: A+Ox3, euthymic affect Lymphatic: no cervical or axillary lymphadenopathy Results & Data Results & Data ([facility]) Diagnostic Findings Multiple views of the hip demonstrates severe DJD/VN with complete loss of the joint space. +osteophytes, +sclerosis, +subchondral cysts. Pre Admission Testing Addendum Laboratory Results 12/26/19 12:43 12/26/19 12:43 PT 10.9 Seconds (9.0-12.0) 12/26/19 12:43 INR 1.0 (0.9-1.1) 12/26/19 12:43 APTT 32.5 Seconds (21.0-31.0) H 12/26/19 12:43 Hemoglobin A1c 5.4 % (4.5-5.6) 12/26/19 12:43 Urine Color Yellow 12/26/19 12:43 Urine Appearance Clear (Clear) 12/26/19 12:43 Urine pH 6.5 (4.5-7.5) 12/26/19 12:43 Ur Specific [place] 1.013 (1.000-1.030) 12/26/19 12:43 Urine Protein Negative (Negative) 12/26/19 12:43 Urine Glucose (UA) Negative (Negative) 12/26/19 12:43 Urine Ketones Negative (Negative) 12/26/19 12:43 Urine Nitrite Negative (Negative) 12/26/19 12:43 Ur Leukocyte Esterase Negative (Negative) 12/26/19 12:43 Blood Type A Positive 12/26/19 12:43 Antibody Screen NEGATIVE 12/26/19 12:43
[~2019-12-31 09:48] MED LIST: ACETAMINOPHEN 500 MG TAB PO SCH; BUPIVACAINE 0.5 % 5 MG/1 ML PF 10ML VIAL ONE; CEFAZOLIN 1000MG 1,000 MG/7.5 ML SYR IV SCH; FAMOTIDINE 20 MG TAB PO SCH; GABAPENTIN 600 MG DOSE PO SCH; LR 500ML BOLUS, THEN 15ML/HR IV SCH; METOCLOPRAMIDE HCL 10 MG TABLET PO SCH; ROPIVACAINE 0.5% HCL/PF 150 MG, BUPIVACAINE 0.5% MPF 30 ML, EPINEPHrine 30MG/30ML (OR U... INSTIL SCH; TRANEXAMIC ACID 1,000 MG **IV Intra-op IV SCH; TRANEXAMIC ACID 1,000 MG **IV Pre-op IV SCH; VANCOMYCIN HCL 1,000 MG/270 ML BAG IV SCH; dexAMETHasone 4 MG TAB PO SCH
[2019-12-31] MEDS ORDERED: MIDAZOLAM HCL 1 MG/ML 2ML VIAL ONE (11:38)
[2019-12-31] MEDS ORDERED: fentaNYL citrate 100 MCG/2 ML VIAL ONE (11:38)
[2019-12-31] MEDS ORDERED: SCOPOLAMINE 1.5 MG TDSY TD ONE (12:17)
[2019-12-31] MEDS ORDERED: BACITRACIN INJ 50,000 UNIT VIAL ONE (12:26)
[2019-12-31] MEDS ORDERED: ORTHO JOINT ANESTHETIC ONE (12:26)
[2019-12-31] MEDS ORDERED: VANCOMYCIN CONSULT ACTIVE PRN ×2 (12:29→16:13)
--- NOTE | 2019-12-31 12:36 | History & Physical Bridge Note ---
Date of Service December 31, 2019 History & Physical Bridge Note I have examined the patient, reviewed the History & Physical and in the interval since the performance of the History & Physical I have noted the following changes of clinical significance: no changes noted
[2019-12-31] MEDS ORDERED: PHENYLEPHRINE HCL 10 MG/ML VIAL ONE (13:24)
[2019-12-31] MEDS ORDERED: ePHEDrine sulfate 50 MG/ML AMP ONE (13:24)
[2019-12-31] MEDS ORDERED: LIDOCAINE HCL 2% 2 ML VIAL/AMP(20MG/ML) INFIL ONE ×2 (13:24)
[2019-12-31] MEDS ORDERED: WATER, STERILE FOR INJ 10 ML VIAL ONE (13:24)
[2019-12-31] MEDS ORDERED: PROPOFOL IV EMULSION 10 MG/ML 20 ML VIAL IV ONE (13:24)
--- NOTE | 2019-12-31 15:02 | Fluoroscopy Report ---
FL hip RT 1V CLINICAL HISTORY: RIGHT ANTERIOR SYDNEY COMPARISON STUDY: Pelvis radiograph September 25, 2019. FLUOROSCOPY TIME: 46 seconds. FLUOROSCOPIC IMAGES: 2 FINDINGS: Fluoroscopy was provided during total right hip arthroplasty. The hardware is intact. No fr acture is visualized. There is an acetabular screw. Left hip arthroplasty is also noted. IMPRESSION: Fluoroscopy provided during total right hip arthroplasty. ACT 112: Negative or not required by law. Electronically signed by: Juan Manuel Valladares M.D. 12/31/2019 3:01 PM
--- NOTE | 2019-12-31 15:03 | Post Operative Brief Note ---
Immediate Post Op Note v1 Date of Surgery December 31, 2019 Pre & Post Diagnosis Operation Date: 12/31/19 12:10 Pre-Op Diagnosis: Unilateral Primary Osteoarthritis, Right hip Post-Op Diagnosis: Unilateral Primary Osteoarthritis, Right hip I identified the patient and participated in the time-out.: Yes Procedure Operation Date: 12/31/19 12:10 Actual Procedures p Right Anterior Total Hip Arthroplasty(Right) - Farhad Carmona DO Surgeon Farhad Carmona DO Traffic Sign Erection Supervisor Jose Lamb Estimated Blood Loss 185 Findings Consistent with Post-Op Diagnosis Fluids 1300 cc LR Specimens Femoral head Anesthesia Type General Complications none Disposition Disposition: Recovery Room Overlapping Procedure I was present for: the critical portions of procedure. I was immediately available: during the entire case. Back up surgeon: was not required during procedure.
--- NOTE | 2019-12-31 15:05 | Operative Report ---
Post Operative Report Pre & Post Diagnosis Operation Date: 12/31/19 12:10 Pre-Op Diagnosis: Unilateral Primary Osteoarthritis, Right hip Post-Op Diagnosis: Unilateral Primary Osteoarthritis, Right hip I identified the patient and participated in the time-out.: Yes Procedure Operation Date: 12/31/19 12:10 Actual Procedures p Right Anterior Total Hip Arthroplasty(Right) - Farhad Carmona DO Surgeon Farhad Carmona DO Towel Stretcher Jose Lamb Estimated Blood Loss 185 Findings Consistent with Post-Op Diagnosis Fluids 1300 cc LR Specimens Femoral head Anesthesia Type General Complications none Disposition Disposition: Recovery Room Indications The patient is a 59-year-old female who presents with severe progressive right hip DJD/AVN who has failed outpatient conservative treatments. I indicated the patient for a anterior total hip replacement and the risks and benefits were explained in detail which include but not limited to infection, bleeding, blood clot, damage to surrounding bone, nerves, vessels, soft tissue, hip dislocation, failure of the prosthesis, leg length discrepancy, need for additional surgery and . The patient agreed to proceed with replacement of the hip and informed consent was obtained. Appropriate clearances were obtained. Description of Procedure COMPONENTS USED: [employer] hip system: Acetabulum size 50, femur size 7 standard offset, femoral head 32+0, liner 5032, acetabular screw 25 mm x 1. DESCRIPTION OF PROCEDURE: Following satisfactory general anesthesia, the patient was placed supine on the OR table. The left leg was placed in the well leg chaudhari and the right leg in the traction device. The right leg was prepared with ChloraPrep and draped sterilely. A surgical timeout was performed, patient identified and site cady verified. Appropriate antibiotics were given. A standard anterior approach in the interval between the sartorius and tensor muscles was performed. Dissection was carried down through subcutaneous tissues. Electrocautery was utilized for hemostasis. Circumflex femoral vessels were identified, tied and ligated. The anterior capsular fat pad was removed and the capsulotomy was performed revealing the arthritic femoral neck and head. A femoral neck cut was made with reciprocating saw and the bone fragments removed. The acetabular self-retraining retractor was placed. Acetabular reaming was completed under fluoroscopic guidance, a 50 shell was impacted into an anatomic position and secured with a dome screw. Local anesthetic was placed and following irrigation, the polyethylene liner was placed. The femur was placed into position of external rotation, extension and adduction. Femoral canal was prepared up to the size 7 standard offset. Trial reduction with a 32+0 neck length head showed good soft tissue tension, leg lengths restored, and good fit and fill of the proximal canal using fluoroscopic landmarks. The hip was dislocated. The trial component was removed. The final implant was placed. The hip was irrigated with sterile saline solution and reduced. A Betadine soak was performed. After 3 minutes, the hip was once more irrigated with copious sterile saline solution with bacitracin. Stephanie-incisional soft tissue was injected utilizing [place] [employer] which includes a combination of Ropivicaine 0.5% 150mg, Bupivicaine 0.5%/Epinephrine 1:200,000 30ml, Toradol 30mg, Dexamethasone 4mg, Ketamine 10mg, Clonidine 100mcg and NSS 30ml solution. The capsule was then closed with 1-0 Vicryl interrupted figure of eight sutures. The fascia was closed with a running suture of #1 Vicryl, the subcutaneous tissues with 2-0 Vicryl and the skin with a running subcuticular stitch of 3-0 V-Loc. Dermabond prineo and a dry dressing were applied. The patient tolerated the procedure well and was transported to PACU in stable condition. Due to the complex nature of the procedure, the entire surgery was performed with the operational assistance of Jose Lamb PA-C. The assistant basketball coach, under direct supervision, was involved in the actual performance of all aspects of the surgical procedure including patient positioning, hemostasis, tissue retraction, instrument management and wound closure. I attest to the content of the Intraoperative Record and any orders documented therein. Any exceptions are noted below.
--- NOTE | 2019-12-31 15:44 | Anesthesiology Progress Note ---
Date of Service December 31, 2019 Anesthesia Post Procedure Vital Signs Vital Signs: Temp Pulse Pulse Resp BP BP Pulse Ox 12/31/19 15:35 98 H 16 109/65 96 12/31/19 15:25 90 16 114/76 96 12/31/19 15:19 36.4 C L 97 H 16 127/82 96 12/31/19 11:04 90 20 151/101 H 99 12/31/19 10:41 37.0 C 82 18 163/99 H 98 Pain Intensity Neck: Pain Intensity: 2 Transfer of Care Handoff Completed per policy Notes Mental Status: alert / awake / arousable Patient Amnestic to Procedure: Yes Nausea / Vomiting: adequately controlled Pain: adequately controlled Airway Patency, RR, SpO2: stable & adequate BP & HR: stable & adequate Hydration State: stable & adequate Neuraxial Anesthesia: was administered and sensory block is resolving Anesthetic Complications: no major complications apparent
--- NOTE | 2019-12-31 15:50 | XRay Report ---
XR hip 1V RT w pelvis HISTORY: 59 years-old Female IN PACU - A/P PELVIS and LATERAL HIP right hip total joint arthroplast y COMPARISON: Pelvis radiographs 09/25/2019 TECHNIQUE: AP view the pelvis with crosstable lateral view of the right hip FINDINGS: [Total joint arthroplasty is unchanged. Right hip total joint arthroplasty demonstrates satisfactory alignment. No acute fracture. Expected postsurgical soft tissue swelling and deep tissue air. Indeter minate 1.4 cm ossified body projects lateral to the proximal right femur. No definite opaque foreign body. IMPRESSION: Satisfactory alignment of the right hip total joint arthroplasty. ACT 112: Negative or not required by law. The above report was generated using voice recognition software. It may contain grammatical, syntax o r spelling errors. Electronically signed by: Ezequiel Dominique M.D. 12/31/2019 3:48 PM
[2019-12-31] MEDS ORDERED: HYDROmorphone INJ 0.5 MG/0.5 ML SYR IV PRN (16:13)
[2019-12-31] MEDS ORDERED: bisacodyL 10 MG SUPP PR PRN (16:13)
[2019-12-31] MEDS ORDERED: METOCLOPRAMIDE HCL INJ 5 MG/ML 2 ML VIAL IV PRN (16:13)
[2019-12-31] MEDS ORDERED: MAGNESIUM HYDROXIDE SUSP 30 ML UDC PO PRN (16:13)
[2019-12-31] MEDS ORDERED: NALOXONE HCL 0.4 MG/1 ML VIAL/CARP IV PRN (16:13)
[2019-12-31] MEDS ORDERED: ONDANSETRON INJ 2 MG/ML 2 ML VIAL IV PRN (16:13)
[2019-12-31] MEDS ORDERED: RIZATRIPTAN BENZOATE 10 MG TAB PO PRN (16:13)
[2019-12-31] MEDS ORDERED: MELATONIN 3 MG TAB PO PRN (16:13)
--- NOTE | 2019-12-31 16:42 | Orthopedic Progress Note ---
Date of Service December 31, 2019 Assessment & Plan (1) Degenerative joint disease of right hip: s/p R anterior SYDNEY -vancomycin x 24 -DVT ppx: SCDs, TEDs, ASA BID -WBAT RLE -PT/OT -PO XR demonstrates well aligned well fixed prosthesis without fracture/dislocation -am labs -DC planning Subjective Post Operative Progress Note Patient seen in PACU, comfortable, denies complaints, pain well controlled, no acute issues. Patient still waking up from general and feeling effects of spinal anesthesia. Review of Systems Review of Systems: All systems reviewed & are unremarkable except as noted in HPI & below Constitutional: as per Subjective / HPI Physical Exam Physical Exam: RLE PE limited secondary to spinal anesthesia, +2 DP pulse, compartments soft NT, dressing CDI Constitutional: WD/WN, vitals as above Results & Data ([facility]) Vital Signs (Past 12 Hours) Vital Signs Temp Pulse Pulse Resp BP BP Pulse Ox 12/31/19 16:16 36.4 C L 93 H 17 119/75 99 12/31/19 15:45 36.5 C 94 H 16 120/78 95 12/31/19 15:35 98 H 16 109/65 96 12/31/19 15:25 90 16 114/76 96 12/31/19 15:19 36.4 C L 97 H 16 127/82 96 12/31/19 11:04 90 20 151/101 H 99 12/31/19 10:41 37.0 C 82 18 163/99 H 98
[2019-12-31] MEDS ORDERED: SODIUM CHLORIDE 0.9% 1000ML 1,000 ML IV SCH (17:50)
[2019-12-31] MEDS: KETOROLAC TROMETHAMINE 15 MG/ML VIAL IV SCH ×2 (18:01→23:42)
[2019-12-31] MEDS: DOCUSATE SODIUM 100 MG CAP PO SCH (20:13)
[2019-12-31] MEDS ORDERED: SENNA 8.6 MG TAB PO SCH (21:00)
[2019-12-31] MEDS ORDERED: LORazepam 1 MG TAB PO SCH (21:00)
[2019-12-31] MEDS: HYDROCODONE/ACETAMOPHEN 5/325MG TAB PO PRN (23:58)
[2020-01-01] MEDS ORDERED: VANCOMYCIN HCL 1,000 MG in SODIUM CHLORIDE 0.9% 250 ML IV SCH (01:00)
[2020-01-01] MEDS: KETOROLAC TROMETHAMINE 15 MG/ML VIAL IV SCH ×2 (05:37→12:27)
[2020-01-01 06:15] LABS: Hematocrit (blood only) 29.6 % (37-47); Immature Granulocytes # (auto) 0.01 K/uL (0.00-0.02); Immature Granulocytes % (auto) 0.1 %; Lymphocytes # (auto) 1.55 K/uL (1.2-3.4); Lymphocytes % (auto) 17.2 %; Mean Corpuscular Hemoglobin 30.6 pg (25-34); Mean Corpuscular Hgb Conc 33.8 g/dL (32-36); Mean Corpuscular Volume 90.5 fL (80-100); Mean Platelet Volume 10.3 fL (7.4-10.4); Monocytes # (auto) 0.69 K/uL (0.11-0.59); Monocytes % (auto) 7.7 %; Neutrophils # (auto) 6.76 K/uL (1.4-6.5); Platelet Count 179 K/uL (130-400); RDW Coefficient of Variation 13.6 % (11.5-14.5); RDW Standard Deviation 45.1 fL (36.4-46.3); Red Blood Count 3.27 M/uL (4.2-5.4); White Blood Count 9.01 K/uL (4.8-10.8)
[2020-01-01] MEDS ORDERED: LEVOTHYROXINE SODIUM 100 MCG TABLET PO SCH (06:30)
[2020-01-01 06:40] LABS: BUN Creatinine Ratio 26.4 (10-20); Calcium 7.8 mg/dl (8.5-10.1); Creatinine Clr Calc Pharmacy 150.5 ml/min; Est GFR (African American) 128.1; Est GFR (Non-African American) 110.6; Potassium 3.8 mmol/L (3.5-5.1)
[2020-01-01] MEDS: DOCUSATE SODIUM 100 MG CAP PO SCH (08:40)
[2020-01-01] MEDS: HYDROCODONE/ACETAMOPHEN 5/325MG TAB PO PRN (08:40)
[2020-01-01] MEDS ORDERED: ASPIRIN 325 MG ECTAB PO SCH (09:00)
[2020-01-01] MEDS ORDERED: MULTIVITAMIN TAB PO SCH (09:00)
--- NOTE | 2020-01-01 09:00 | Orthopedic Progress Note ---
Date of Service January 01, 2020 Assessment & Plan (1) Degenerative joint disease of right hip: s/p R anterior SYDNEY POD#1 -vancomycin x 24 -DVT ppx: SCDs, TEDs, ASA BID -WBAT RLE -PT/OT -PO XR demonstrates well aligned well fixed prosthesis without fracture/dislocation -am labs - as above, hgb 10.0 -DC planning - home with Admission and Anticipated Discharge Date Admission Date: December 31, 2019 Subjective Post Operative Progress Note Patient seen sitting up in bed, comfortable, denies complaints, pain well controlled, no acute issues. Denies F/C/N/V/SOB/CP. Review of Systems Review of Systems: All systems reviewed & are unremarkable except as noted in HPI & below Constitutional: as per Subjective / HPI Physical Exam Physical Exam: RLE NVSI +EHL/FHL/TA/GS SILT grossly, +2 DP pulse, compartments soft NT, dressing cdi. Constitutional: WD/WN, vitals as above Results & Data ([facility]) Vital Signs (Past 12 Hours) Vital Signs Temp Pulse Resp BP Pulse Ox 01/01/20 07:30 36.4 C L 71 18 112/65 100 01/01/20 03:22 36.4 C L 68 18 124/73 99 12/31/19 23:40 36.5 C 83 16 106/67 96 Laboratory Results 01/01/20 01/01/20 Range/Units 05:31 05:31 WBC 9.01 (4.8-10.8) K/uL RBC 3.27 L (4.2-5.4) M/uL Hgb 10.0 L (12.0-16.0) g/dL Hct 29.6 L (37-47) % MCV 90.5 (80-100) fL MCH 30.6 (25-34) pg MCHC 33.8 (32-36) g/dL RDW Std Deviation 45.1 (36.4-46.3) fL RDW Coeff of Barb 13.6 (11.5-14.5) % Plt Count 179 (130-400) K/uL MPV 10.3 (7.4-10.4) fL Immature Gran % (Auto) 0.1 % Neut % (Auto) 75.0 % Lymph % (Auto) 17.2 % Vance % (Auto) 7.7 % Eos % (Auto) 0.0 % Baso % (Auto) 0.0 % Neut # (Auto) 6.76 H (1.4-6.5) K/uL Lymph # (Auto) 1.55 (1.2-3.4) K/uL Vance # (Auto) 0.69 H (0.11-0.59) K/uL Eos # (Auto) 0.00 (0-0.5) K/uL Baso # (Auto) 0.00 (0-0.2) K/uL Immature Gran # (Auto) 0.01 (0.00-0.02) K/uL Sodium 140 (136-145) mmol/L Potassium 3.8 (3.5-5.1) mmol/L Chloride 108 H (98-107) mmol/L Carbon Dioxide 28 (21-32) mmol/L Anion Gap 4.0 (3-11) BUN 11 (7-18) mg/dl Creatinine 0.43 L (0.6-1.2) mg/dl Est Cr Clr Drug Dosing 150.5 ml/min Est GFR ( Amer) 128.1 Est GFR (Non-Af Amer) 110.6 BUN/Creatinine Ratio 26.4 H (10-20) Glucose 79 (70-99) mg/dl Calcium 7.8 L (8.5-10.1) mg/dl
--- NOTE | 2020-01-01 20:51 | Discharge Summary ---
Date of Service January 01, 2020 Admission HPI Per Admitting Provider The patient is a 59 year old female who presents with complaints of severe right hip pain and DJD/AVN. The patient has failed outpatient conservative treatments to this point which included NSAIDs, PT and home exercise/walking program. The patient's pain and limited function have progressed to the point where they severely hinder their activities of daily living and they no longer tolerate exercise programs. They are requesting to proceed with total hip replacement surgery. Principal Diagnosis Right anterior total hip replacement -Right hip DJD/AVN Discharge Exam RLE NVSI +EHL/FHL/TA/GS SILT grossly, +2 DP pulse, compartments soft NT, dressing cdi. Constitutional WD/WN, vitals as above Discharge Data Allergies Allergy/AdvReac Type Severity Reaction Status Date / Time Sulfa (Sulfonamide Allergy Intermediate Hives Verified 12/31/19 10:26 Antibiotics) broccoli Allergy Unknown Unknown Verified 12/31/19 10:26 [place] And Derivatives Allergy Unknown Unknown Verified 12/31/19 10:26 shellfish derived AdvReac Severe "Heavy Verified 12/31/19 10:26 feeling"/improved with "laying down" milk AdvReac Mild GI upset Verified 12/31/19 10:26 richards Allergy Intermediate Hives Uncoded 12/31/19 10:26 Consultations 01/01/20 08:00 Consult Case Management - Discharge Planning Routine Procedures Performed Operation Date: 12/31/19 12:10 Actual Procedures p Right Anterior Total Hip Arthroplasty(Right) - Farhad Carmona DO Ordered Studies 12/31/19 12:10 FL fluoroscopy <1hr Routine FL hip RT 1V Routine Hospital Course (1) Degenerative joint disease of right hip: The patient is a 59 -year-old female who presents with long standing history of severe right hip DJD/AVN and failed outpatient conservative treatments. The patient's symptoms have progressed to the point where it has been difficult to perform even normal activities of daily living. I indicated the patient for a right anterior total hip arthroplasty, the risks, benefits and complications of the procedure include but not limited to infection, bleeding, damage to bone, nerves, vessels, surrounding soft tissue, may develop blood clots, loss of function, leg length discrepancy, dislocation, failure of the components, loosening of the components, the need for additional surgery and . The patient wished to proceed with surgery at this time and informed consent was obtained. Hospital Course: On 12/31/19 the patient was taken to the operating room, adequate anesthesia administered and underwent a right anterior total hip arthroplasty. The patient tolerated the procedure well and was taken to the PACU in stable condition. Post-operatively the patient was started on a DVT ppx medication and given appropriate IV antibiotics. Consults were placed to physical therapy, occupational therapy and case management. On POD#1, the patient did well overnight and their pain was well controlled. Labs were drawn and the Hgb was 10.0. The patient progressed well with PT. Dressings were changed at this time and the incision was clean, dry and intact. The patients hospital stay was relatively uneventful and they were deemed stable by the orthopedic team and consultants to be discharged home with HH on 01/01/20. Discharge Instructions: Upon discharge the patient may weight bear as tolerates through their operative extremity. They were instructed to keep the incision clean and dry at all times. The patient may shower but should not submerge the incision, avoid bathing, pools and hot tubes. The patient was given a script for pain medication and should take as instructed. The patient was given a script for DVT ppx 325mg ASA BID and should take as directed. The patient was instructed to not drive or travel for long distances until cleared to do so. If the patient develops any symptoms of fevers, chills, nausea, vomiting, increased redness, swelling, pain or drainage from the surgical site, they should notify the office and/or proceed to the nearest emergency room. The patient should follow up in 10-14 days after surgery for their routine post-operative follow-up appointment and should call the office to confirm the date and time. s/p R anterior [place] POD#1 -vancomycin x 24 -DVT ppx: SCDs, TEDs, ASA BID -WBAT RLE -PT/OT -PO XR demonstrates well aligned well fixed prosthesis without fracture/dislocation -am labs - as above, hgb 10.0 -DC planning - home with Total Time Total Time Spent Total Time Spent (In Minutes): 30 Discharge Plan Discharge Items Patient Disposition: Home - Home Health Services Reason For Visit: Unilateral Primary Osteoarthritis, Right hip Discharge Diagnosis: Right anterior total hip replacement -Right hip DJD/AVN Condition on Discharge: Good Activity: Per Instructions section Bathing: Keep incision dry Bathing Comment: No bathing, pools or hot tubs. Sexual Activity: Wait until after follow-up appointment Exercise/Sports: Wait until after follow-up appointment Driving/Machine Use: No driving. Weightbearing: Full weightbearing Non-emergency contact: Primary Care Provider and Surgeon Call non-emergency contact if: you have any medication questions, your symptoms worsen, your pain is not controlled, your pain is worsening, your pain is unusual for you, your pain is concerning for you, you have a fever, your temperature is above 101, your wound has increased redness, your wound has increased drainage and your wound pain has increased Follow-up/Referrals: Danilo Hernandez MD [Primary Care Provider] - Diet: Regular Addtl Attending Provider Instructions: ACTIVITY RECOMMENDATIONS: SELF CARE INSTRUCTIONS AFTER TOTAL HIP REPLACEMENT : Direct Anterior Approach Until the incision and soft tissues around your hip have healed, there is a possibility that the hip prosthesis could dislocate. A. Hip flexion ( Up & Down out of chair or steps ) may be difficult. This is normal. B. Numbness in front of the thigh is also normal for a few weeks. C. Use hand rails when walking on stairs. D. Wear low heeled shoes with non-slip soles. E. Be sure that your floors are free of things that could trip you - throw rugs, electrical cords, small objects. Avoid wet and waxed floors, especially with crutches and canes. F. Try to walk several times a day with rest periods between. G. Continue with all the exercises taught to you in the hospital. Again, make walking a part of your daily routine. SPECIAL CARE INSTRUCTIONS: VERY IMPORTANT TO READ AND REVIEW A. You may still be at risk for phlebitis and blood clots. 1. Wear surgical stockings (CHILO hose) for 2 weeks after surgery to improve circulation and reduce swelling. 2. Take Aspirin 325mg twice daily for 4 weeks or as directed by your doctor. This is your blood thinner. 3. High risk patients may be prescribed a stronger blood thinner if necessary. 4. If you are on Coumadin normally, your family doctor/sterile process tech should monitor your blood work. Expect a phone call the day of or the day after bloodwork is drawn to adjust your dosage. B. You must take antibiotics before having dental work, bladder, bowel and other surgery. Your doctor will provide you with a permanent card to carry describing precautions. C. [facility] [place] if you have a fever, redness or swelling around the incision, cloudy drainage from incision, or sudden increase in pain in your hip, not relieved by your regular pain medication. D. Please call the office at if you have any concerns or questions about your operation or recovery. * YOU MAY SHOWER, NO TUB BATHS UNTIL CLEARED BY YOUR DOCTOR. - Keep an extra close eye on the top portion of your incision. Be sure to keep clean & dry. * WEAR CHILO HOSE 20 HOURS PER DAY FOR 2 WEEKS. * YOU MAY PROGRESS FROM A WALKER, TO A CANE, TO INDEPENDENT AT YOUR OWN PACE. * MOST PATIENTS WILL HAVE HOME NURSING FOR THERAPY. IF YOU DECIDE TO DO OUTPATIENT PHYSICAL THERAPY, PLEASE SCHEDULE THIS 3 TIMES PER WEEK. * DERMABOND Prineo- This is a mesh tape dressing that is covered with glue. It should remain in place until the incision is properly healed, usually 10-14 days. This dressing is designed to naturally slough off. You may trim the excess mesh tape as it peels off. Incision may be briefly wet in a shower. Dry immediately by blotting with a clean, dry towel. Do not bath or swim until instructed by your doctor. Do not scratch, rub, or pick at the dressing. Do not apply any topical ointments or lotions until dressing is completely removed and/or instructed by your doctor. There may be a small piece of suture material at one end of your incision. Do not pull or trim this. If it is bothersome or catching on clothing, you may cover it with a band-aid. FOLLOW UP VISIT: If appointment is not already scheduled: Please call [facility] [place] to make a follow-up appointment for 2 weeks after your surgery at . Pending Studies at Discharge: No Stand-Alone Forms: [facility], Opioid Pain Management, Smoking Cessation Medications and DC Order Prescriptions: New aspirin [Ecotrin] 325 mg Tablet,Delayed Release (Dr/Ec) 325 mg PO BID Qty: 56 RF: 0 hydrocodone-acetaminophen 5-325 mg tablet 1 tab PO Q6H MDD 4 PRN (Reason: pain) Qty: 30 RF: 0 docusate sodium 100 mg Capsule 100 mg PO BID PRN (Reason: constipation) Qty: 28 RF: 0 Continued multivitamin Tablet 1 tab PO HS RF: 0 ascorbic acid (vitamin C) [Vitamin C] 1,000 mg Tablet 1 g PO DAILY RF: 0 cyanocobalamin (vitamin B-12) [Vitamin B-12] 1,000 mcg Tablet 1,000 mcg PO DAILY RF: 0 levothyroxine 100 mcg Tablet 100 mcg PO QAM RF: 0 magnesium 250 mg Tablet 250 mg PO HS RF: 0 lorazepam [Ativan] 1 mg Tablet 1 mg PO HS RF: 0 fexofenadine-pseudoephedrine [Darline-D 12 Hour] 60-120 mg Tablet Extended Release 12 Hr 1 tab PO QAM RF: 0 cholecalciferol (vitamin D3) [Vitamin D3] 125 mcg (5,000 unit) Tablet 5,000 unit PO DAILY RF: 0 omega [id number]-fish oil [Fish Oil] 1,000 mg (120 mg-180 mg) Capsule 1 cap PO DAILY RF: 0 albuterol sulfate [Ventolin HFA] 90 mcg/actuation Hfa Aerosol Inhaler 2 puff INHALATION QID PRN (Reason: Shortness Of Breath) RF: 0 rizatriptan 10 mg Tablet 10 mg PO UD PRN (Reason: Migraine Headache) RF: 0 melatonin 5 mg Tablet 5 mg PO HS PRN (Reason: Sleep) RF: 0 sennosides [Senokot] 8.6 mg Tablet 17.2 mg PO HS PRN (Reason: constipation) Qty: 28 RF: 0 fluconazole 150 mg tablet 150 mg PO Q3D PRN (Reason: Yeast infection) Qty: 2 RF: 0 Discontinued aspirin 325 mg Tablet,Delayed Release (Dr/Ec) 325 mg PO BID Qty: 56 RF: 0 acetaminophen [Tylenol Extra Strength] 500 mg Tablet 1,000 mg PO Q6 PRN (Reason: pain) RF: 0 Discharge Orders: Discharge Order (Routine); Ordered 01/01/20 Ordered By: Farhad Parekh/Other Patient Handouts: Preventing Deep Vein Thrombosis Admission Data Admit Date/Time: 12/31/19 15:32 Attending Provider: Farhad Carmona Admit Provider: Farhad Carmona Primary Care Provider: Danilo Hernandez Other Interventions: Discharge Summary Assessment (RN) Last Done: 01/01/20 10:27
== END 2020-01-01 14:01 | disposition home health service (06) | DRG 470 ==
LOC: ASU 09:48 → 3E 15:32